=== PATIENT | male | born 1960 | race Caucasian/White ===

== ENCOUNTER 2016-04-25 12:45 | Emergency (ER) | payer MEDICARE, MEDICAID ==
[~2016-04-25 12:45] MED LIST: ATOR40TA PO; BENZ100C PO; CALC-98 PO; OXYC-323 PO
--- NOTE | 2016-04-25 14:28 | PHYS DOC ---
Past Medical History Past Medical History: A-Fib, GERD, High Cholesterol, Hypertension, Other Additional Past Medical Histor: OSTEOPOROSIS, OSTEOGENISIS IMPERFECTA, SCOLIOSIS, heart murmur Past Surgical History: Other Additional Past Surgical Histo: LT FEMUR ORIF ,LEFT SHOULDER ORIF,LEFT ELBOW WIRE,NOSE, BOTH EARS Alcohol Use: None Drug Use: None Adult General Chief Complaint Chief Complaint: RIB PAIN HPI HPI Patient is a 55 year old male who presents with chest pain. Patient reports he has had some broken ribs on the left side recently. 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 He presents now with left lateral chest pain. He also reports feeling a little short of breath, although this may be due to pain with respiration. He has not taken anything for pain at home. No other acute complaints. Of note, patient was admitted last week with chest pain and was evaluated by cardiology, who believes chest pain not cardiac in origin. Review of Systems Review of Systems Constitutional: Denies fever or chills Eyes: Denies change in visual acuity or eye pain HENT: Denies nasal congestion or sore throat Respiratory: Shortness of breath Cardiovascular: L lateral chest pain GI: Denies abdominal pain, nausea, vomiting, bloody stools or diarrhea : Denies dysuria or hematuria Musculoskeletal: Denies back pain or joint pain Integument: Denies rash or skin lesions Neurologic: Denies headache, focal weakness or sensory changes Current Medications Current Medications Current Medications Medications (Trade) Dose Ordered Sig/Chelsie Start Time Stop Time Status Last Admin Dose Admin Aspirin (Children'S Aspirin) 324 mg 1X ONCE 04/25/16 14:30 04/25/16 14:31 DC 04/25/16 15:06 324 MG Fentanyl Citrate (Fentanyl 2ml Vial) 50 mcg 1X ONCE 04/25/16 17:45 04/25/16 17:46 DC 04/25/16 17:45 50 MCG Morphine Sulfate 4 mg 1X ONCE 04/25/16 17:00 04/25/16 17:38 DC Oxycodone/ Acetaminophen (Percocet 5/325) 2 tab 1X ONCE 04/25/16 14:30 04/25/16 14:31 DC 04/25/16 15:06 2 TAB Allergies Allergies Allergies Coded Allergies Type Severity Reaction Last Updated Verified NSAIDS (Non-Steroidal Anti-Inflamma Allergy Intermediate VOMITING UPSET STOMACH 08/13/15 Yes cyclobenzaprine Allergy Intermediate RASH 08/13/15 Yes metaxalone Allergy Intermediate RASH 08/13/15 Yes orphenadrine Allergy Intermediate RASH 08/13/15 Yes tramadol Allergy Intermediate SEIZURE 08/13/15 Yes Physical Exam Physical Exam Constitutional: Well developed, no acute distress, non-toxic appearance, frail HENT: Normocephalic, atraumatic, bilateral external ears normal Eyes: EOMI, conjunctiva normal, no discharge Neck: Normal range of motion, no stridor Cardiovascular: Heart rate normal, regular rhythm, murmur noted Lungs & Thorax: Bilateral breath sounds clear to auscultation; L lateral chest wall markedly TTP without obvious deformity or skin lesion Abdomen: Bowel sounds normal, soft, non-distended, no TTP Skin: Warm, dry, no erythema, no rash Back: Kyphosis Extremities: No obvious deformity, no edema Neurologic: Alert and oriented X 3, no gross deficits noted Current Patient Data Vital Signs Vital Signs Date Time Temp Pulse Resp B/P Pulse Ox O2 Delivery O2 Flow Rate FiO2 04/25/16 17:45 Room Air 04/25/16 16:59 52 13 106/65 96 04/25/16 14:02 98.4 98.4 Lab Values Laboratory Tests Test 04/25/16 14:40 White Blood Count 7.7x10^3/uL (4.0-11.0) Red Blood Count 4.40x10^6/uL (4.30-5.70) Hemoglobin 14.1g/dL (13.0-17.5) Hematocrit 42.4% (39.0-53.0) Mean Corpuscular Volume 96fL (79-100) Mean Corpuscular Hemoglobin 32pg (25-35) Mean Corpuscular Hemoglobin Concent 33g/dL (31-37) Red Cell Distribution Width 13.9% (11.5-14.5) Platelet Count 199x10^3/uL (140-400) Neutrophils (%) (Auto) 69% (31-73) Lymphocytes (%) (Auto) 26% (24-48) Monocytes (%) (Auto) 4% (0-9) Eosinophils (%) (Auto) 0% (0-3) Basophils (%) (Auto) 1% (0-3) Neutrophils # (Auto) 5.3x10^3uL (1.8-7.7) Lymphocytes # (Auto) 2.0x10^3/uL (1.0-4.8) Monocytes # (Auto) 0.3x10^3/uL (0.0-1.1) Eosinophils # (Auto) 0.0x10^3/uL (0.0-0.7) Basophils # (Auto) 0.1x10^3/uL (0.0-0.2) Sodium Level 141mmol/L (136-145) Potassium Level 3.8mmol/L (3.5-5.1) Chloride Level 105mmol/L (98-107) Carbon Dioxide Level 26mmol/L (21-32) Anion Gap 10 (6-14) Blood Urea Nitrogen 13mg/dL (8-26) Creatinine 0.7mg/dL (0.7-1.3) Estimated GFR (Cockcroft-Gault) 116.7 Glucose Level 88mg/dL (70-99) Calcium Level 8.3mg/dL (8.5-10.1) L Troponin I Quantitative < 0.017ng/mL (0.000-0.055) Laboratory Tests 04/25/16 14:40 Laboratory Tests 04/25/16 14:40 EKG EKG EKG (my read): sinus rhythm, rate 62, normal axis, intervals wnl, TWI in aVL/V2- 4 seen on prior EKG (04/11/16) Radiology/Procedures Radiology/Procedures CXR: IMPRESSION: 1. Demineralization. 2. Numerous old left-sided rib fractures. 3. No acute left rib abnormality is detected. Course & Med Decision Making Course & Med Decision Making Pertinent Labs and Imaging studies reviewed. (See chart for details) Patient is 55 year old male who presents with chest pain. Appears to be chest wall pain; was seen by cardiology earlier this month during admission who believed pain not cardiac related. Regardless, will check EKG, labs (including troponin), CXR and rib x-rays. Oral pain meds and ASA ordered. EKG similar to prior. Imaging results as above. Labs unremarkable; troponin wnl. Discussed results with patient. Although patient may be drug seeking (I suspect there is at least a component of this), he does have legitimate pathology related to osteogenesis imperfecta so will send home with small rx for percocet. I instructed the patient on the importance of following up with PCP for further pain management (he does have appt at pain clinic in July). Discharged home with return precautions. Kaiden Disclaimer Kaiden Disclaimer This electronic medical record was generated, in whole or in part, using a voice recognition dictation system. Departure Departure Impression: Primary Impression: Chest wall pain Disposition: HOME, SELF-CARE Condition: STABLE Referrals: NO PCP (PCP) Patient Instructions: Chest Wall Pain Additional Instructions: Thank you for allowing us to provide care today in the Emergency Department. Take the provided medication as directed. Use caution when taking this medication as it can make you drowsy. Schedule a follow up appointment with your primary care doctor as soon as possible. Return promptly to the Emergency Department if you develop any new or concerning symptoms. Scripts Oxycodone/Apap 5-325 (Percocet 5-325 Mg Tablet)1 Each Tablet1 Tab PO PRN Q6HRS PRN PAIN #6 TAB Ref 0 Prov:SUZANNA DESIR MD 04/25/16 SUZANNA DESIR MD Apr 25, 2016 14:28
[2016-04-25] MEDS ORDERED: ASPIRIN 81 MG TAB.CHEW PO ONE (14:30)
[2016-04-25] MEDS ORDERED: OXYCODONE/APAP 5/325 TABLET. PO ONE (14:30)
[2016-04-25 14:49] LABS: BASO # 0.1 x10^3/uL (0.0-0.2); BASO % 1 % (0-3); EOS % 0 % (0-3); HEMATOCRIT 42.4 % (39.0-53.0); HEMOGLOBIN 14.1 g/dL (13.0-17.5); LYMPH % 26 % (24-48); MEAN CORPUSCULAR HEMOGLOBIN 32 pg (25-35); MEAN CORPUSCULAR HGB CONC 33 g/dL (31-37); MEAN CORPUSCULAR VOLUME 96 fL (79-100); MONO % 4 % (0-9); NEUT % 69 % (31-73); PLATELET COUNT 199 x10^3/uL (140-400); RED CELL DISTRIBUTION WIDTH 13.9 % (11.5-14.5); WHITE BLOOD COUNT 7.7 x10^3/uL (4.0-11.0)
[2016-04-25 15:00] LABS: CALCIUM 8.3 mg/dL (8.5-10.1); CREATININE 0.7 mg/dL (0.7-1.3); GFR 116.7; POTASSIUM 3.8 mmol/L (3.5-5.1)
[2016-04-25 16:59] VITALS: BP 106/65
[2016-04-25] MEDS ORDERED: MORPHINE SULFATE 4 MG/ML DISP.SYRIN. IV ONE (17:00)
--- NOTE | 2016-04-25 17:16 | RAD ---
Left RIBS with chest, 3 views, 04/25/2016: History: Rib pain Comparison is made to a study from 04/11/2016. The bony structures are demineralized. There are numerous left-sided rib deformities compatible with old healed fractures. These involve at least the left third through seventh ribs. No definite acute fracture is seen. There is no evidence of underlying pneumothorax or pleural fluid. There is a mild thoracic scoliosis with no vertebral compression deformities. IMPRESSION: 1. Demineralization. 2. Numerous old left-sided rib fractures. 3. No acute left rib abnormality is detected.
[2016-04-25] MEDS ORDERED: FENTANYL PF 100 MCG/2 ML VIAL. IV ONE (17:45)
[2016-04-25] MEDS ORDERED: OXYC-323 PO (18:01)
--- NOTE | 2016-04-26 06:17 | EKG ---
[facility] [address] [place] [address] Test Date: 2016-04-25 Test Time: 14:32:06 Pat Name: SANDRA NG Department: Room: Gender: M Outpatient Dietitian: : 1960 Requested By: SUZANNA DESIR Order Number: [id number] Reading MD: Perla Brooke Measurements Intervals [place] Rate: 62 P: 41 [place]: 156 QRS: 54 QRSD: 88 T: 95 QT: 412 QTc: 420 Interpretive Statements SINUS RHYTHM ST & T ABNORMALITY, CONSIDER ANTERIOR ISCHEMIA T ABNORMALITY IN LATERAL LEADS ABNORMAL ECG Electronically Signed On 04-28-2016 0:08:13 PRESS PIPE INSPECTOR by Perla Brooke
== END 2016-04-25 18:05 | disposition home or self-care (01) ==
LOC: ER 12:45
DX: R07.81 Pleurodynia (principal); E78.00 Pure hypercholesterolemia, unspecified; I10 Essential (primary) hypertension; I48.91 Unspecified atrial fibrillation; K21.9 Gastro-esophageal reflux disease without esophagitis; M41.9 Scoliosis, unspecified; M81.0 Age-related osteoporosis without current pathological fracture; Z88.5 Allergy status to narcotic agent; Z88.8 Allergy status to other drugs, medicaments and biological substances
CPT/HCPCS: 36415; 71101; 80048; 84484; 85027; 93005; 96374; 99285; J3010

== ENCOUNTER 2016-05-03 11:12 | Emergency (ER) | payer MEDICARE, MEDICAID ==
[~2016-05-03] VITALS: Ht 149.9 cm; Wt 54.4 kg
--- NOTE | 2016-05-03 12:42 | PHYS DOC ---
Past Medical History Past Medical History: A-Fib, GERD, High Cholesterol, Hypertension, Other Additional Past Medical Histor: OSTEOPOROSIS, OSTEOGENISIS IMPERFECTA, SCOLIOSIS, heart murmur Past Surgical History: Other Additional Past Surgical Histo: LT FEMUR ORIF ,LEFT SHOULDER ORIF,LEFT ELBOW WIRE,NOSE, BOTH EARS Alcohol Use: None Drug Use: None Adult General Chief Complaint Chief Complaint: BACK PAIN OR INJURY HPI HPI Patient is a 55 year old male who presents to the ED by EMS with the complaint of back and chest pain. The patient has been dealing with these pains for several weeks. He has a history of osteogenesis imperfecta. He states he had 2 rib fractures several weeks ago. Today, he was on the bus, and he did not have a specific injury but he felt his chest "pop like chewing gum" and felt that the pain in his ribs flared up. He also had pain at the middle of his back at this time. Of note, the patient was recently hospitalized for chest and back pain and had a cardiac workup, it was not felt to be cardiac in nature. The chart mentions possible acid peptic/GERD but the patient states he was not told anything about that and was not advised to be on any medication for stomach acid. Patient does not currently have a PCP but states he has an appointment to see a new pediatric intensive physician at a week from Sunday. He does not see a pain management doctor. Review of Systems Review of Systems Constitutional: Denies fever or chills [] Eyes: Denies change in visual acuity, redness, or eye pain [] HENT: Denies nasal congestion or sore throat [] Respiratory: Denies cough or shortness of breath [] Cardiovascular: As in history of present illness. GI: Denies abdominal pain, nausea, vomiting, bloody stools or diarrhea [] : Denies dysuria or hematuria [] Musculoskeletal: As in history of present illness Integument: Denies rash or skin lesions [] Neurologic: Denies headache, focal weakness or sensory changes [] Endocrine: Denies polyuria or polydipsia [] Allergies Allergies Allergies Coded Allergies Type Severity Reaction Last Updated Verified cyclobenzaprine Allergy Intermediate RASH 05/03/16 Yes metaxalone Allergy Intermediate RASH 05/03/16 Yes orphenadrine Allergy Intermediate RASH 05/03/16 Yes tramadol Allergy Intermediate SEIZURE 05/03/16 Yes NSAIDS (Non-Steroidal Anti-Inflamma Adverse Reaction Intermediate VOMITING UPSET STOMACH 05/03/16 Yes Physical Exam Physical Exam Constitutional: Alert, watching TV, in no acute distress whatsoever. Sinus rhythm on the monitor with heart rate in the 60s. Pulse ox 99% on room air. HENT: Normocephalic, atraumatic, bilateral external ears normal, nose normal. [ ] Eyes: conjunctiva normal, no discharge. [] Neck: Normal range of motion, no stridor. [] Cardiovascular:Heart rate regular rhythm, no murmur [] Lungs & Thorax: Bilateral breath sounds clear to auscultation , chest wall nontender to palpation while I am visiting with the patient, no crepitance, no acute deformity Abdomen: Bowel sounds normal, soft, no tenderness, no masses, no pulsatile masses. [] Skin: Warm, dry, no erythema, no rash. [] Back: Patient is wearing a Velcro back brace. No acute abnormality on visual inspection or palpation. Extremities: No tenderness, no cyanosis, no clubbing, ROM intact, no edema. [] Neurologic: Alert and oriented X 3, normal motor function, normal sensory function, no focal deficits noted. [] Current Patient Data Vital Signs Vital Signs Date Time Temp Pulse Resp B/P Pulse Ox O2 Delivery O2 Flow Rate FiO2 05/03/16 11:27 98.1 79 20 116/74 98 Room Air 98.1 EKG EKG 12-lead EKG read by me. Compared to previous EKGs in the record dated April 25 and April 11 2016. Sinus rhythm. Heart rate 82. There are T-wave inversions and ST changes that are present on old EKGs. There are no acute changes on today 's EKG. No STEMI. 1125 [] Radiology/Procedures Radiology/Procedures [] Course & Med Decision Making Course & Med Decision Making Pertinent Labs and Imaging studies reviewed. (See chart for details) 55-year-old male with a history of osteogenesis imperfecta presents with pain related to rib fractures which are several weeks old. He has been seen for complaints of pain multiple times in the ED. Today he is requesting some pain pills and or a pain shot. I discussed with the patient that opiates would not be appropriate for management of the pain that he is dealing with today. I advised him to use ice, use his lower back Velcro brace as needed for his comfort, and definitely follow up with primary care physician as he has planned in 9 days. I reviewed his record and it looks like it would be reasonable for him to try a proton pump inhibitor for possible GERD and I wrote him a prescription for that. [] Jose Franciscoon Disclaimer Dragon Disclaimer This electronic medical record was generated, in whole or in part, using a voice recognition dictation system. Departure Departure Impression: Primary Impression: Chest wall pain Additional Impression: Drug-seeking behavior Disposition: HOME, SELF-CARE Condition: STABLE Referrals: NO PCP (PCP) Additional Instructions: As we discussed, opiate pain medication is usually reserved for a short course after an injury that just happened. For this reason, I would not recommend opiates for your pain today. Your pain might be improved by ice and limiting movement. If you continue to have problems with pain, discussed this with your primary care doctor. As we discussed, when you're recently in the hospital for chest and back pain, they thought that stomach acid might be contributing to this. Let's try a medicine to reduce stomach acid for a week or 2 and see if that helps any. I wrote you for a one-month supply. If it is helping, asked your primary care doctor to renew that prescription. Scripts Esomeprazole Magnesium (Nexium Capsule)40 Mg Capsule.dr40 Mg PO DAILYAC #30 CAP Ref 0 For stomach acid, chest and upper back pain Prov:JONATHAN MEDELLIN MD 05/03/16 Problem Qualifiers JONATHAN MEDELLIN MD May 03, 2016 12:42
[2016-05-03 12:50] VITALS: BP 132/64
[2016-05-03] MEDS ORDERED: ESOM40CA PO (12:50)
--- NOTE | 2016-05-03 13:35 | EKG ---
[facility] [address] [place] [address] Test Date: 2016-05-03 Test Time: 11:25:53 Pat Name: SANDRA NG Department: Room: Gender: M Culinary Artist: : 1960 Requested By: JONATHAN MEDELLIN Order Number: [id number] Reading MD: Raman Hooper Measurements Intervals [place] Rate: 82 P: 133 [place]: 148 QRS: 124 QRSD: 80 T: 74 QT: 384 QTc: 452 Interpretive Statements SINUS RHYTHM ATRIAL PREMATURE COMPLEX(ES) ABNORMAL RIGHT AXIS DEVIATION LEFT POSTERIOR FASCICULAR BLOCK ST & T ABNORMALITY, CONSIDER ANTEROLATERAL ISCHEMIA OR LEFT VENTRICULAR STRAIN T ABNORMALITY IN ANTERIOR LEADS ABNORMAL ECG Electronically Signed On 05-03-2016 15:16:[address] by Raman Hooper
== END 2016-05-03 13:00 | disposition home or self-care (01) ==
LOC: ER 11:12
DX: R07.89 Other chest pain (principal); I48.91 Unspecified atrial fibrillation; I10 Essential (primary) hypertension; K21.9 Gastro-esophageal reflux disease without esophagitis; E78.00 Pure hypercholesterolemia, unspecified; Z72.89 Other problems related to lifestyle; Z88.6 Allergy status to analgesic agent; Z88.8 Allergy status to other drugs, medicaments and biological substances
CPT/HCPCS: 93005; 99283-25

== ENCOUNTER 2016-05-18 06:43 | Emergency (ER) | payer MEDICARE, MEDICAID ==
[~2016-05-18] VITALS: Ht 149.9 cm; Wt 56.7 kg
[~2016-05-18 06:43] MED LIST changes: +ESOM40CA PO
[2016-05-18] MEDS ORDERED: OXYCODONE/APAP 5/325 TABLET. PO ONE (07:15)
--- NOTE | 2016-05-18 07:19 | RAD ---
Portable AP upright view CXR: Clinical indications: Chest pain started this a.m.. Comparison: April 25, 2016. Findings: No acute lung infiltrate or pleural effusion or pulmonary edema or lung mass or pneumothorax is seen. The heart size, pulmonary vasculature, mediastinum and both bigg are unremarkable. Old healed bilateral rib cage fractures are seen. Old left clavicular fracture is seen. Impression: No acute radiographic abnormality is seen.
[2016-05-18 07:43] VITALS: BP 125/70
[2016-05-18 07:47] LABS: BASO % 1 % (0-3); EOS % 0 % (0-3); HEMATOCRIT 38.4 % (39.0-53.0); HEMOGLOBIN 12.6 g/dL (13.0-17.5); LYMPH # 1.6 x10^3/uL (1.0-4.8); LYMPH % 33 % (24-48); MEAN CORPUSCULAR HEMOGLOBIN 32 pg (25-35); MEAN CORPUSCULAR HGB CONC 33 g/dL (31-37); MEAN CORPUSCULAR VOLUME 97 fL (79-100); MONO % 7 % (0-9); NEUT % 60 % (31-73); PLATELET COUNT 267 x10^3/uL (140-400); RED BLOOD COUNT 3.97 x10^6/uL (4.30-5.70); RED CELL DISTRIBUTION WIDTH 13.6 % (11.5-14.5); WHITE BLOOD COUNT 4.8 x10^3/uL (4.0-11.0)
[2016-05-18 07:53] LABS: CALCIUM 9.1 mg/dL (8.5-10.1); CREATININE 0.8 mg/dL (0.7-1.3); POTASSIUM 3.1 mmol/L (3.5-5.1)
[2016-05-18 07:55] LABS: PROTHROMBIN TIME PATIENT 12.9 SEC (11.7-14.0)
[2016-05-18] MEDS ORDERED: OXYC-323 PO (07:58)
[2016-05-18 07:59] LABS: ALBUMIN 3.5 g/dL (3.4-5.0); ALBUMIN/GLOBULIN RATIO 0.9 (1.0-1.7); TOTAL BILIRUBIN 0.5 mg/dL (0.2-1.0); TOTAL PROTEIN 7.5 g/dL (6.4-8.2)
--- NOTE | 2016-05-18 07:59 | PHYS DOC ---
Past Medical History Past Medical History: A-Fib, GERD, High Cholesterol, Hypertension, Other Additional Past Medical Histor: OSTEOPOROSIS, OSTEOGENISIS IMPERFECTA, SCOLIOSIS, heart murmur Past Surgical History: Other Additional Past Surgical Histo: LT FEMUR ORIF ,LEFT SHOULDER ORIF,LEFT ELBOW WIRE,NOSE, BOTH EARS Alcohol Use: None Drug Use: None Adult General Chief Complaint Chief Complaint: CHEST PAIN HPI HPI 55-year-old male who is well-known to our emergency Department presents with left-sided chest pain after he fell getting off the bus on [place] way to the [place] this morning. He states he landed on his left side. He does state that after the fall he developed some left shoulder and arm pain as well. He has had surgery on his left shoulder so he has chronic pain in that area. During the course of the interview the patient asked multiple times if he could have Percocet rather than anything through the IV because it lasted longer. He denies any shortness of breath nausea or diaphoresis. He denies any exertional dyspnea. He states he would like to get out of here as soon as possible so he can get over to the [place]. [] Review of Systems Review of Systems Constitutional: Denies fever or chills [] Eyes: Denies change in visual acuity, redness, or eye pain [] HENT: Denies nasal congestion or sore throat [] Respiratory: Denies cough or shortness of breath [] Cardiovascular: No additional information not addressed in HPI [] GI: Denies abdominal pain, nausea, vomiting, bloody stools or diarrhea [] : Denies dysuria or hematuria [] Musculoskeletal: Per history of present illness [] Integument: Denies rash or skin lesions [] Neurologic: Denies headache, focal weakness or sensory changes [] Endocrine: Denies polyuria or polydipsia [] Current Medications Current Medications Current Medications Medications (Trade) Dose Ordered Sig/Chelsie Start Time Stop Time Status Last Admin Dose Admin Oxycodone/ Acetaminophen (Percocet 5/325) 2 tab 1X ONCE 05/18/16 07:15 05/18/16 07:16 DC 05/18/16 07:19 2 TAB Allergies Allergies Allergies Coded Allergies Type Severity Reaction Last Updated Verified cyclobenzaprine Allergy Intermediate RASH 05/03/16 Yes metaxalone Allergy Intermediate RASH 05/03/16 Yes orphenadrine Allergy Intermediate RASH 05/03/16 Yes tramadol Allergy Intermediate SEIZURE 05/03/16 Yes NSAIDS (Non-Steroidal Anti-Inflamma Adverse Reaction Intermediate VOMITING UPSET STOMACH 05/03/16 Yes Physical Exam Physical Exam Constitutional: Well developed, well nourished, no acute distress, non-toxic appearance. [] HENT: Normocephalic, atraumatic, bilateral external ears normal, oropharynx moist, no oral exudates, nose normal. [] Eyes: PERRLA, EOMI, conjunctiva normal, no discharge. [] Neck: Normal range of motion, no tenderness, supple, no stridor. [] Cardiovascular:Heart rate regular rhythm, no murmur [] Lungs & Thorax: Bilateral breath sounds clear to auscultation [] Abdomen: Bowel sounds normal, soft, no tenderness, no masses, no pulsatile masses. [] Skin: Warm, dry, no erythema, no rash. [] Back: No tenderness, no CVA tenderness. [] Extremities: No tenderness, no cyanosis, no clubbing, ROM intact, no edema. [] Neurologic: Alert and oriented X 3, normal motor function, normal sensory function, no focal deficits noted. [] Psychologic: Affect normal, judgement normal, mood normal. [] Current Patient Data Vital Signs Vital Signs Date Time Temp Pulse Resp B/P Pulse Ox O2 Delivery O2 Flow Rate FiO2 05/18/16 07:43 62 18 125/70 96 Room Air 05/18/16 06:47 98.0 98.0 Lab Values Laboratory Tests Test 05/18/16 07:30 White Blood Count 4.8x10^3/uL (4.0-11.0) Red Blood Count 3.97x10^6/uL (4.30-5.70) L Hemoglobin 12.6g/dL (13.0-17.5) L Hematocrit 38.4% (39.0-53.0) L Mean Corpuscular Volume 97fL (79-100) Mean Corpuscular Hemoglobin 32pg (25-35) Mean Corpuscular Hemoglobin Concent 33g/dL (31-37) Red Cell Distribution Width 13.6% (11.5-14.5) Platelet Count 267x10^3/uL (140-400) Neutrophils (%) (Auto) 60% (31-73) Lymphocytes (%) (Auto) 33% (24-48) Monocytes (%) (Auto) 7% (0-9) Eosinophils (%) (Auto) 0% (0-3) Basophils (%) (Auto) 1% (0-3) Neutrophils # (Auto) 2.8x10^3uL (1.8-7.7) Lymphocytes # (Auto) 1.6x10^3/uL (1.0-4.8) Monocytes # (Auto) 0.3x10^3/uL (0.0-1.1) Eosinophils # (Auto) 0.0x10^3/uL (0.0-0.7) Basophils # (Auto) 0.0x10^3/uL (0.0-0.2) Prothrombin Time 12.9SEC (11.7-14.0) Prothrombin Time INR 1.0 (0.8-1.1) Sodium Level 140mmol/L (136-145) Potassium Level 3.1mmol/L (3.5-5.1) L Chloride Level 102mmol/L (98-107) Carbon Dioxide Level 27mmol/L (21-32) Anion Gap 11 (6-14) Blood Urea Nitrogen 17mg/dL (8-26) Creatinine 0.8mg/dL (0.7-1.3) Estimated GFR (Cockcroft-Gault) 100.0 BUN/Creatinine Ratio 21 (6-20) H Glucose Level 103mg/dL (70-99) H Calcium Level 9.1mg/dL (8.5-10.1) Total Bilirubin 0.5mg/dL (0.2-1.0) Aspartate Amino Transferase (AST) 15U/L (15-37) Alanine Aminotransferase (ALT) 18U/L (16-63) Alkaline Phosphatase 82U/L (46-116) Troponin I Quantitative < 0.017ng/mL (0.000-0.055) WY-Lvj-C-Type Natriuretic Peptide 179pg/mL (0-124) H Total Protein 7.5g/dL (6.4-8.2) Albumin 3.5g/dL (3.4-5.0) Albumin/Globulin Ratio 0.9 (1.0-1.7) L Ethyl Alcohol Level < 10mg/dL (0-10) Laboratory Tests 2/9/17 07:30 Laboratory Tests 05/18/16 07:30 EKG EKG EKG: Normal sinus rhythm with flipped T waves anterior laterally which is unchanged from previous EKG rate of 60 [] Radiology/Procedures Radiology/Procedures [] Impressions: PROCEDURE: CHEST AP ONLY Portable AP upright view CXR: Clinical indications: Chest pain started this a.m.. Comparison: April 25, 2016. Findings: No acute lung infiltrate or pleural effusion or pulmonary edema or lung mass or pneumothorax is seen. The heart size, pulmonary vasculature, mediastinum and both bigg are unremarkable. Old healed bilateral rib cage fractures are seen. Old left clavicular fracture is seen. Impression: No acute radiographic abnormality is seen. Course & Med Decision Making Course & Med Decision Making Pertinent Labs and Imaging studies reviewed. (See chart for details) [] Dragon Disclaimer Dragon Disclaimer This electronic medical record was generated, in whole or in part, using a voice recognition dictation system. Departure Departure Impression: Primary Impression: Chest wall contusion Disposition: HOME, SELF-CARE Condition: STABLE Referrals: NO PCP (PCP) Patient Instructions: Chest Wall Pain Additional Instructions: Thank you for allowing us to participate in your care today. Followup with your primary care physician in 3 days if your symptoms do not improve. Return to the emergency department you have any new or concerning findings. This should be evaluated by the primary care physician and any necessary consulting services for continued management within a few days after discharge. Return to emergency room if you have any new or concerning symptoms including but not limited to fever, chills, nausea, vomiting, intractable pain, any new rashes, chest pain, shortness of air, uncontrolled bleeding, difficulty breathing, and/or vision loss. You may have been prescribed medication that can change in your level of thinking and ability to operate machinery. These medications include hydrocodone and Ativan. Also, Benadryl has been known to do this as well. Be sure to check with your pharmacist and ask if the medications you've prescribed can affect your level of consciousness. I recommend not operating heavy machinery or driving while on medication such as these. Scripts Oxycodone/Apap 5-325 (Percocet 5-325 Mg Tablet)1 Each Tablet1 Tab PO PRN Q6HRS PRN PAIN #10 TAB Prov:MAGGIE HARRELL DO 05/18/16 Problem Qualifiers Primary Impression: Chest wall contusion Encounter type: initial encounter Laterality: left Qualified Code: S20.212A - Contusion of left front wall of thorax, initial encounter MAGGIE HARRELL DO May 18, 2016 07:59
--- NOTE | 2016-05-18 13:55 | EKG ---
[facility] [address] [place] [address] Test Date: 2016-05-18 Test Time: 11:51:33 Pat Name: SANDRA NG Department: Room: Gender: M Placement Assistant: : 1960 Requested By: MAGGIE HARRELL Order Number: [id number] Reading MD: Perla Brooke Measurements Intervals [place] Rate: P: [place]: QRS: QRSD: T: QT: QTc: Interpretive Statements SINUS RHYTHM LEFT VENTRICULAR HYPERTROPHY WITH REPOLARIZATION CHANGES. ALSO CONSIDER MYOCARDIAL ISCHEMIA Electronically Signed On 05-21-2016 15:51:45 PAPER FEEDER by Perla Brooke
== END 2016-05-18 09:23 | disposition home or self-care (01) ==
LOC: ER 06:43
DX: S20.219A Contusion of unspecified front wall of thorax, initial encounter (principal); I10 Essential (primary) hypertension; E78.00 Pure hypercholesterolemia, unspecified; G89.29 Other chronic pain; I48.91 Unspecified atrial fibrillation; K21.9 Gastro-esophageal reflux disease without esophagitis; M41.9 Scoliosis, unspecified; Z88.6 Allergy status to analgesic agent; Z88.8 Allergy status to other drugs, medicaments and biological substances; W17.89XA Other fall from one level to another, initial encounter; Y93.89 Activity, other specified; Y99.8 Other external cause status; Y92.89 Other specified places as the place of occurrence of the external cause
CPT/HCPCS: 36415; 71010; 80053; 83880; 84484; 85027; 85610; 93005; 99285; G0480

== ENCOUNTER 2016-05-29 08:15 | Emergency (ER) | payer MEDICARE, MEDICAID ==
[~2016-05-29] VITALS: Ht 149.9 cm; Wt 56.7 kg
[2016-05-29 08:49] LABS: BASO % 1 % (0-3); EOS % 0 % (0-3); HEMATOCRIT 32.9 % (39.0-53.0); HEMOGLOBIN 10.9 g/dL (13.0-17.5); LYMPH # 1.2 x10^3/uL (1.0-4.8); LYMPH % 17 % (24-48); MEAN CORPUSCULAR HEMOGLOBIN 32 pg (25-35); MEAN CORPUSCULAR HGB CONC 33 g/dL (31-37); MEAN CORPUSCULAR VOLUME 97 fL (79-100); MONO % 8 % (0-9); NEUT % 75 % (31-73); PLATELET COUNT 189 x10^3/uL (140-400); RED CELL DISTRIBUTION WIDTH 14.2 % (11.5-14.5)
[2016-05-29 08:55] LABS: CREATININE 0.9 mg/dL (0.7-1.3); GFR 87.3; POTASSIUM 3.7 mmol/L (3.5-5.1)
[2016-05-29] MEDS ORDERED: FENTANYL PF 100 MCG/2 ML VIAL. IV ONE (09:00)
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
--- NOTE | 2016-05-29 09:15 | RAD ---
Right tibia and fibula, 2 views, 05/29/2016: History: Fall, pain and bruising No fracture is identified. There is moderate subcutaneous edema. IMPRESSION: No acute bony abnormality is detected.
--- NOTE | 2016-05-29 09:17 | RAD ---
Portable chest, 05/29/2016: History: Chest pain Comparison is made to a study from 05/18/2016. The heart size and pulmonary vascularity are normal. No pulmonary infiltrates are seen. There is no evidence of pleural fluid or pneumothorax. Numerous old healed rib fractures are again noted bilaterally. There is an old healed left clavicular fracture. A surgical screw is present in the proximal left humerus. There is a mild thoracic scoliosis. IMPRESSION: No acute cardiopulmonary abnormality is detected.
--- NOTE | 2016-05-29 09:24 | EKG ---
[facility] [address] [place] [address] Test Date: 2016-05-29 Test Time: 08:16:32 Pat Name: SANDRA NG Department: Room: Gender: Elderly Caregiver: LYNNE ER : 1960 Requested By: Marshall ROMANO Order Number: [id number] Reading MD: Measurements Intervals [place] Rate: 87 P: 40 MI: 150 QRS: 64 QRSD: 76 T: 101 QT: 354 QTc: 432 Interpretive Statements SINUS RHYTHM ATRIAL PREMATURE COMPLEX(ES) ST & T ABNORMALITY, CONSIDER ANTERIOR ISCHEMIA OR LEFT VENTRICULAR STRAIN ABNORMAL ECG RI6.01 No previous ECG available for comparison
[2016-05-29 09:45] VITALS: BP 102/54
== END 2016-05-29 10:11 | disposition home or self-care (01) ==
LOC: ER 08:15
DX: R07.89 Other chest pain (principal); S80.11XA Contusion of right lower leg, initial encounter; E78.00 Pure hypercholesterolemia, unspecified; I10 Essential (primary) hypertension; M81.0 Age-related osteoporosis without current pathological fracture; M41.9 Scoliosis, unspecified; Z88.6 Allergy status to analgesic agent; Z88.8 Allergy status to other drugs, medicaments and biological substances; W17.89XA Other fall from one level to another, initial encounter; Y93.89 Activity, other specified; Y92.89 Other specified places as the place of occurrence of the external cause; Y99.8 Other external cause status
CPT/HCPCS: 36415; 71010; 73590; 80048; 83880; 84484; 85027; 93005; 96374; 99285; J3010

== ENCOUNTER 2016-07-02 12:04 | Emergency (ER) | payer MEDICARE, MEDICAID ==
[~2016-07-02] VITALS: Ht 149.9 cm; Wt 56.7 kg
[2016-07-02] MEDS ORDERED: ASPIRIN 81 MG TAB.CHEW PO ONE (12:45)
[2016-07-02] MEDS ORDERED: HYDROCODONE/APAP 5/325MG TABLET. PO ONE (12:45)
--- NOTE | 2016-07-02 12:48 | PHYS DOC ---
Past Medical History Past Medical History: A-Fib, GERD, High Cholesterol, Hypertension, Other Additional Past Medical Histor: osteoporosis, osteogenesis imperfecta, scoliosis, heart murmer Past Surgical History: Other Additional Past Surgical Histo: lt femur orif, lt shoulder orif, left elbow wire, nasal, bilat ear Alcohol Use: None Drug Use: None Adult General Chief Complaint Chief Complaint: CHEST PAIN HPI HPI 55-year-old male presenting to the emergency department with chest pain. His pain is left in the left rib pain is reproducible upon palpation. It does radiate up to his left jaw. She reports it started approximately 1 hour prior to arrival. He was given aspirin and nitroglycerin prior to arrival which did not improve his pain. Pain is moderate. Patient was seen by our cardiology team last time he was admitted in April of this year where cardiology had seen him. He had a negative stress test. Cardiology signed off at that time. He reports his pain is similar to the previous episodes he's had. Review of systems is negative for abdominal pain nausea vomiting diaphoresis. All other review of systems is negative unless otherwise noted in history of present illness. Review of Systems Review of Systems SEE ABOVE. Current Medications Current Medications Current Medications Medications (Trade) Dose Ordered Sig/Chelsie Start Time Stop Time Status Last Admin Dose Admin Acetaminophen/ Hydrocodone Bitart (Lortab 5/325) 1 tab 1X ONCE 07/02/16 12:45 07/02/16 12:50 DC 07/02/16 13:31 1 TAB Aspirin (Children'S Aspirin) 324 mg 1X ONCE 07/02/16 12:45 07/02/16 12:46 DC Allergies Allergies Allergies Coded Allergies Type Severity Reaction Last Updated Verified cyclobenzaprine Allergy Intermediate RASH 05/03/16 Yes metaxalone Allergy Intermediate RASH 05/03/16 Yes orphenadrine Allergy Intermediate RASH 05/03/16 Yes tramadol Allergy Intermediate SEIZURE 05/03/16 Yes NSAIDS (Non-Steroidal Anti-Inflamma Adverse Reaction Intermediate VOMITING UPSET STOMACH 05/03/16 Yes Physical Exam Physical Exam Constitutional: Well developed, well nourished, no acute distress, non-toxic appearance. HENT: Normocephalic, atraumatic, bilateral external ears normal, oropharynx moist, no oral exudates, nose normal. [] Eyes: PERRLA, EOMI, conjunctiva normal, no discharge. Neck: Normal range of motion, no tenderness, supple, no stridor. Cardiovascular:Heart rate regular rhythm, no murmur [] Lungs & Thorax: Bilateral breath sounds clear to auscultation . Chest is tender to palpation. Abdomen: Bowel sounds normal, soft, no tenderness, no masses, no pulsatile masses. [] Skin: Warm, dry, no erythema, no rash. Back: No tenderness, no CVA tenderness. [] Extremities: No tenderness, no cyanosis, no clubbing, ROM intact, no edema. Neurologic: Alert and oriented X 3, normal motor function, normal sensory function, no focal deficits noted. Psychologic: Affect normal, judgement normal, mood normal. [] Current Patient Data Vital Signs Vital Signs Date Time Temp Pulse Resp B/P Pulse Ox O2 Delivery O2 Flow Rate FiO2 07/02/16 14:11 60 16 114/65 98 07/02/16 12:10 98.1 Room Air 98.1 Lab Values Laboratory Tests Test 07/02/16 12:09 07/02/16 14:13 White Blood Count 7.5x10^3/uL (4.0-11.0) Red Blood Count 4.32x10^6/uL (4.30-5.70) Hemoglobin 13.2g/dL (13.0-17.5) Hematocrit 40.7% (39.0-53.0) Mean Corpuscular Volume 94fL (79-100) Mean Corpuscular Hemoglobin 31pg (25-35) Mean Corpuscular Hemoglobin Concent 33g/dL (31-37) Red Cell Distribution Width 14.6% (11.5-14.5) H Platelet Count 277x10^3/uL (140-400) Neutrophils (%) (Auto) 67% (31-73) Lymphocytes (%) (Auto) 27% (24-48) Monocytes (%) (Auto) 5% (0-9) Eosinophils (%) (Auto) 0% (0-3) Basophils (%) (Auto) 1% (0-3) Neutrophils # (Auto) 5.0x10^3uL (1.8-7.7) Lymphocytes # (Auto) 2.0x10^3/uL (1.0-4.8) Monocytes # (Auto) 0.4x10^3/uL (0.0-1.1) Eosinophils # (Auto) 0.0x10^3/uL (0.0-0.7) Basophils # (Auto) 0.0x10^3/uL (0.0-0.2) Sodium Level 141mmol/L (136-145) Potassium Level 4.0mmol/L (3.5-5.1) Chloride Level 102mmol/L (98-107) Carbon Dioxide Level 28mmol/L (21-32) Anion Gap 11 (6-14) Blood Urea Nitrogen 15mg/dL (8-26) Creatinine 0.7mg/dL (0.7-1.3) Estimated GFR (Cockcroft-Gault) 116.7 Glucose Level 108mg/dL (70-99) H Calcium Level 9.5mg/dL (8.5-10.1) Troponin I Quantitative < 0.017ng/mL (0.000-0.055) < 0.017ng/mL (0.000-0.055) Laboratory Tests 07/02/16 12:09 Laboratory Tests 07/02/16 12:09 EKG EKG [] EKG compared to previous on 05/29 2016 under the name of Aubrey Siddiqui. Raul is patient's mental name. VK #[id number] and VK #[id number]. EKG similar to previous. Sinus rhythm with regular rate. [place] is leftward. There is some mild repolarization abnormality in lead V2.Similiar to previous. Otherwise unremarkable. Radiology/Procedures Radiology/Procedures [] Course & Med Decision Making Course & Med Decision Making Pertinent Labs and Imaging studies reviewed. (See chart for details) [] 55-year-old male presenting to the emergency department today with chest pain. EKG similar to prior. Afebrile. Normal vital signs. X-ray unremarkable. Blood work obtained shows normal troponin. Patient was provided pain medication in the emergency department. Troponin negative 2. He was then discharged to follow-up with the patient's PCP in 2-3 days. Dragon Disclaimer Dragon Disclaimer This electronic medical record was generated, in whole or in part, using a voice recognition dictation system. Departure Departure Impression: Primary Impression: Chest pain Disposition: HOME, SELF-CARE Condition: STABLE Referrals: NO PCP (PCP) HAYDEN MICHAUD MD Patient Instructions: Chest Pain (Nonspecific) Additional Instructions: Thank you for allowing us to participate in your care today. Followup with your primary care physician in 3 days if your symptoms do not improve. If you do not have a primary care provider you can ask for a list of our primary care providers. Return to the emergency department you have any new or concerning findings. This should be evaluated by the primary care physician and any necessary consulting services for continued management within a few days after discharge. Return to emergency room if you have any new or concerning symptoms including but not limited to fever, chills, nausea, vomiting, intractable pain, any new rashes, chest pain, shortness of air, uncontrolled bleeding, difficulty breathing, and/or vision loss. You may have been prescribed medication that can change in your level of thinking and ability to operate machinery. These medications include hydrocodone and Ativan. Also, Benadryl has been known to do this as well. Be sure to check with your pharmacist and ask if the medications you've prescribed can affect your level of consciousness. I recommend not operating heavy machinery or driving while on medication such as these. Scripts Aspirin 81 Mg Tab.chew1 Tab PO DAILY #14 TAB Ref 3 Prov:JOCY GRIJALVA MD 07/02/16 JOCY GRIJALVA MD Jul 02, 2016 12:48
[2016-07-02 12:49] LABS: BASO % 1 % (0-3); EOS % 0 % (0-3); HEMATOCRIT 40.7 % (39.0-53.0); HEMOGLOBIN 13.2 g/dL (13.0-17.5); LYMPH % 27 % (24-48); MEAN CORPUSCULAR HEMOGLOBIN 31 pg (25-35); MEAN CORPUSCULAR HGB CONC 33 g/dL (31-37); MEAN CORPUSCULAR VOLUME 94 fL (79-100); MONO % 5 % (0-9); NEUT % 67 % (31-73); PLATELET COUNT 277 x10^3/uL (140-400); RED BLOOD COUNT 4.32 x10^6/uL (4.30-5.70); RED CELL DISTRIBUTION WIDTH 14.6 % (11.5-14.5); WHITE BLOOD COUNT 7.5 x10^3/uL (4.0-11.0)
[2016-07-02 13:02] LABS: CALCIUM 9.5 mg/dL (8.5-10.1); CREATININE 0.7 mg/dL (0.7-1.3); GFR 116.7
--- NOTE | 2016-07-02 13:26 | RAD ---
Indication pain in the jaw and ribs. A single view of the chest was obtained. Comparison is made to a study just over one month earlier. Patient is somewhat rotated on the image. The heart and pulmonary vessels are within normal limits. An acute parenchymal infiltrate is not seen. A significant change when compared to the prior study is not seen. Multiple healed rib fractures are noted. IMPRESSION: No acute finding. No significant change
[2016-07-02] MEDS ORDERED: ASPI81TA2 PO (14:03)
[2016-07-02 14:41] VITALS: BP 158/60
--- NOTE | 2016-07-03 06:14 | EKG ---
[facility] [address] [place] [address] Test Date: 2016-07-02 Test Time: 12:11:25 Pat Name: SANDRA NG Department: Room: Gender: M Certified Medication Technician: : 1960 Requested By: JOCY GRIJALVA Order Number: [id number] Reading MD: Perla Brooke Measurements Intervals [place] Rate: 75 P: 47 ID: [id number] QRS: 57 QRSD: 78 T: 85 QT: 376 QTc: 422 Interpretive Statements SINUS RHYTHM LEFT ATRIAL ABNORMALITY ST & T ABNORMALITY, CONSIDER ANTEROLATERAL ISCHEMIA ABNORMAL ECG Electronically Signed On 07-03-2016 19:46:23 CDT by Perla Brooke
== END 2016-07-02 14:51 | disposition home or self-care (01) ==
LOC: ER 12:04
DX: R07.81 Pleurodynia (principal); I48.91 Unspecified atrial fibrillation; K21.9 Gastro-esophageal reflux disease without esophagitis; E78.00 Pure hypercholesterolemia, unspecified; I10 Essential (primary) hypertension; M81.0 Age-related osteoporosis without current pathological fracture; Z88.8 Allergy status to other drugs, medicaments and biological substances; Z88.5 Allergy status to narcotic agent; Z88.6 Allergy status to analgesic agent
CPT/HCPCS: 36415; 71010; 80048; 84484; 85027; 93005; 99285-25

== ENCOUNTER 2016-07-18 12:02 | Emergency (ER) | payer MEDICARE, MEDICAID ==
[~2016-07-18] VITALS: Ht 149.9 cm; Wt 56.7 kg
[~2016-07-18 12:02] MED LIST changes: +ASPI81TA2 PO
--- NOTE | 2016-07-18 12:44 | EKG ---
[facility] [address] [place] [address] Test Date: 2016-07-18 Test Time: 12:23:22 Pat Name: SANDRA NG Department: Room: Gender: M [employer]fg [employer]: : 1960 Requested By: RACH HEATH Order Number: [id number] Reading MD: Measurements Intervals [place] Rate: 67 P: 41 MA: 146 QRS: 45 QRSD: 96 T: 90 QT: 412 QTc: 438 Interpretive Statements SINUS RHYTHM QRS(T) CONTOUR ABNORMALITY CONSIDER ANTEROSEPTAL MYOCARDIAL DAMAGE ST & T ABNORMALITY, CONSIDER ANTERIOR ISCHEMIA OR LEFT VENTRICULAR STRAIN T ABNORMALITY IN HIGH LATERAL LEADS ABNORMAL ECG RI6.01 No previous ECG available for comparison
[2016-07-18] MEDS ORDERED: NITROGLYCERIN SUBLINGUAL 0.4 MG BOTTLE OF 25. SL PRN (12:45)
[2016-07-18] MEDS ORDERED: FENTANYL PF 100 MCG/2 ML VIAL. IV PRN (12:45)
--- NOTE | 2016-07-18 12:51 | RAD ---
PA and lateral chest radiographs 07/18/2016 Clinical history: Chest pain and shortness of breath since earlier today. PA and lateral digital radiographs of the chest were obtained. Comparison study is dated 07/02/2016. The cardiac silhouette is borderline enlarged. The thoracic aorta is mildly tortuous. No acute pulmonary infiltrate is seen. No pleural effusion or pneumothorax is noted. The osseous structures are unchanged. A bone screw seen within the proximal left humerus, unchanged. Impression: No acute abnormality is seen.
[2016-07-18 12:52] LABS: BASO # 0.1 x10^3/uL (0.0-0.2); BASO % 1 % (0-3); EOS % 0 % (0-3); HEMATOCRIT 40.5 % (39.0-53.0); HEMOGLOBIN 13.2 g/dL (13.0-17.5); LYMPH # 2.1 x10^3/uL (1.0-4.8); LYMPH % 30 % (24-48); MEAN CORPUSCULAR HEMOGLOBIN 31 pg (25-35); MEAN CORPUSCULAR HGB CONC 33 g/dL (31-37); MEAN CORPUSCULAR VOLUME 94 fL (79-100); MONO % 4 % (0-9); NEUT % 65 % (31-73); PLATELET COUNT 173 x10^3/uL (140-400); RED BLOOD COUNT 4.29 x10^6/uL (4.30-5.70); RED CELL DISTRIBUTION WIDTH 14.5 % (11.5-14.5); WHITE BLOOD COUNT 6.8 x10^3/uL (4.0-11.0)
[2016-07-18 13:03] LABS: CALCIUM 8.8 mg/dL (8.5-10.1); CREATININE 0.9 mg/dL (0.7-1.3); GFR 87.3; POTASSIUM 3.9 mmol/L (3.5-5.1)
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
[2016-07-18 13:09] LABS: ALBUMIN 3.8 g/dL (3.4-5.0); DIRECT BILIRUBIN 0.1 mg/dL (0.0-0.2); TOTAL BILIRUBIN 0.3 mg/dL (0.2-1.0); TOTAL PROTEIN 7.8 g/dL (6.4-8.2)
[2016-07-18] MEDS ORDERED: OXYCODONE/APAP 5/325 TABLET. PO ONE (13:30)
[2016-07-18 13:56] LABS: BARBITURATES NEG (NEG); BENZODIAZEPINES NEG (NEG); CANNABINOIDS NEG (NEG); COCAINE NEG (NEG); METHADONE NEG (NEG); OPIATES POS (NEG); PHENCYCLIDINE NEG (NEG)
[2016-07-18 13:59] LABS: ETHANOL, URINE NEG (NEG)
[2016-07-18] MEDS ORDERED: OXYC-323 PO (15:13)
[2016-07-18] MEDS ORDERED: OXYCODONE/APAP 10/325 TABLET. PO ONE (15:15)
[2016-07-18 15:20] VITALS: BP 151/72
== END 2016-07-18 15:20 | disposition home or self-care (01) ==
LOC: ER 12:02
DX: R07.81 Pleurodynia (principal); I48.91 Unspecified atrial fibrillation; K21.9 Gastro-esophageal reflux disease without esophagitis; E78.00 Pure hypercholesterolemia, unspecified; I10 Essential (primary) hypertension; M81.0 Age-related osteoporosis without current pathological fracture; F17.210 Nicotine dependence, cigarettes, uncomplicated; Z88.6 Allergy status to analgesic agent; Z88.8 Allergy status to other drugs, medicaments and biological substances
CPT/HCPCS: 36415; 71020; 80048; 80076; 80305; 83690; 83880; 84484; 84703; 85027; 93005; 96374; 99285; J3010; 81025; G0481

== ENCOUNTER 2016-08-02 12:31 | Emergency (ER) | payer MEDICARE, MEDICAID ==
[~2016-08-02] VITALS: Ht 149.9 cm; Wt 56.7 kg
[~2016-08-02 12:31] MED LIST changes: +MELA3TAB PO
[2016-08-02] MEDS ORDERED: IV NORMAL SALINE 1000ML BAG 1,000 ML IV SCH (12:48)
[2016-08-02 12:59] LABS: BASO # 0.1 x10^3/uL (0.0-0.2); BASO % 1 % (0-3); EOS % 1 % (0-3); HEMATOCRIT 39.7 % (39.0-53.0); HEMOGLOBIN 13.1 g/dL (13.0-17.5); LYMPH # 1.6 x10^3/uL (1.0-4.8); LYMPH % 28 % (24-48); MEAN CORPUSCULAR HEMOGLOBIN 31 pg (25-35); MEAN CORPUSCULAR HGB CONC 33 g/dL (31-37); MEAN CORPUSCULAR VOLUME 94 fL (79-100); MONO % 5 % (0-9); NEUT % 66 % (31-73); PLATELET COUNT 210 x10^3/uL (140-400); RED BLOOD COUNT 4.21 x10^6/uL (4.30-5.70); RED CELL DISTRIBUTION WIDTH 14.8 % (11.5-14.5); WHITE BLOOD COUNT 5.7 x10^3/uL (4.0-11.0)
--- NOTE | 2016-08-02 13:13 | PHYS DOC ---
Past Medical History Past Medical History: A-Fib, High Cholesterol, Other Additional Past Medical Histor: osteoporosis, osteogenesis imperfecta, scoliosis, heart murmer Past Surgical History: Other Additional Past Surgical Histo: lt femur orif, lt shoulder orif, left elbow wire, nasal, bilat ear Alcohol Use: None Drug Use: None Adult General Chief Complaint Chief Complaint: CHEST PAIN HPI HPI Patient is a 55 year old male who presents with chest pain and back pain. He states earlier today he fell backwards and injured his back. He states he's having 8 out of 10 sharp pain that's located to his shoulder blades. He also complains about anterior chest pain in the same spot. He states this back pain started immediately after he fell and within about an hour ago his chest pain started. Nothing makes his chest pain that are worse she states that sharp in nature and is nonradiating. He denies any nausea or vomiting he does complain of some shortness of breath associated with this discomfort. States she has a history of compression fractures and has had right-sided rib fractures secondary to his osteogenesis imperfecta. States he had a negative stress test partially 4-5 months ago at and the perform this test because of elevated cardiac enzymes of the time. He states he's never had a heart attack. He does take aspirin daily. He also has history of this lipidemia and he does smoke daily. Review of Systems Review of Systems Constitutional: Denies fever or chills [] Eyes: Denies change in visual acuity, redness, or eye pain [] HENT: Denies nasal congestion or sore throat [] Respiratory: Denies cough or shortness of breath [] Cardiovascular: No additional information not addressed in HPI [] GI: Denies abdominal pain, nausea, vomiting, bloody stools or diarrhea [] : Denies dysuria or hematuria [] Musculoskeletal: Positive for back pain Integument: Denies rash or skin lesions [] Neurologic: Denies headache, focal weakness or sensory changes [] Endocrine: Denies polyuria or polydipsia [] Current Medications Current Medications Current Medications Medications (Trade) Dose Ordered Sig/Chelsie Start Time Stop Time Status Last Admin Dose Admin Fentanyl Citrate (Fentanyl 2ml Vial) 50 mcg PRN Q15MIN PRN 08/02/16 13:15 08/02/16 17:32 DC 08/02/16 15:56 50 MCG Info (Do NOT chart on this entry -- for MONITORING) 1 each PRN DAILY PRN 08/02/16 14:00 08/02/16 17:32 DC Iohexol (Omnipaque 300 Mg/ml) 75 ml 1X ONCE 08/02/16 14:00 08/02/16 14:01 DC 08/02/16 14:05 75 ML Nitroglycerin 0.4 mg 0.4 mg PRN Q5MIN PRN 08/02/16 13:00 08/02/16 17:32 DC 08/02/16 15:53 0.4 MG Oxycodone/ Acetaminophen (Percocet 5/325) 2 tab 1X ONCE 08/02/16 17:15 08/02/16 17:16 DC 08/02/16 17:22 2 TAB Sodium Chloride (Iv Sodium Chloride 0.9% 1000ml Bag) 1,000 ml @ 1,000 mls/hr Q1H 08/02/16 12:48 08/02/16 13:47 DC 08/02/16 12:56 1,000 MLS/HR Allergies Allergies Allergies Coded Allergies Type Severity Reaction Last Updated Verified cyclobenzaprine Allergy Intermediate RASH 05/03/16 Yes metaxalone Allergy Intermediate RASH 05/03/16 Yes orphenadrine Allergy Intermediate RASH 05/03/16 Yes tramadol Allergy Intermediate SEIZURE 07/18/16 Yes NSAIDS (Non-Steroidal Anti-Inflamma Adverse Reaction Intermediate VOMITING UPSET STOMACH 05/03/16 Yes Physical Exam Physical Exam Constitutional: Well developed, well nourished, no acute distress, non-toxic appearance. [] HENT: Normocephalic, atraumatic, bilateral external ears normal, oropharynx moist, no oral exudates, nose normal. [] Eyes: PERRLA, EOMI, conjunctiva normal, no discharge. [] Neck: Normal range of motion, no tenderness, supple, no stridor. [] Cardiovascular:Heart rate regular rhythm, no murmur [] Lungs & Thorax: Bilateral breath sounds clear to auscultation [] Abdomen: Bowel sounds normal, soft, no tenderness, no masses, no pulsatile masses. [] Skin: Warm, dry, no erythema, no rash. [] Back: No step-offs noted, tender palpation around T3 to 4 area midline, no CVA tenderness. [] Extremities: No tenderness, no cyanosis, no clubbing, ROM intact, no edema. [] Neurologic: Alert and oriented X 3, normal motor function, normal sensory function, no focal deficits noted. [] Psychologic: Affect normal, judgement normal, mood normal. [] Current Patient Data Vital Signs Vital Signs Date Time Temp Pulse Resp B/P Pulse Ox O2 Delivery O2 Flow Rate FiO2 08/02/16 17:25 52 16 117/67 96 08/02/16 17:22 Room Air 08/02/16 12:35 97.7 97.7 Lab Values Laboratory Tests Test 08/02/16 12:45 08/02/16 15:50 White Blood Count 5.7x10^3/uL (4.0-11.0) Red Blood Count 4.21x10^6/uL (4.30-5.70) L Hemoglobin 13.1g/dL (13.0-17.5) Hematocrit 39.7% (39.0-53.0) Mean Corpuscular Volume 94fL (79-100) Mean Corpuscular Hemoglobin 31pg (25-35) Mean Corpuscular Hemoglobin Concent 33g/dL (31-37) Red Cell Distribution Width 14.8% (11.5-14.5) H Platelet Count 210x10^3/uL (140-400) Neutrophils (%) (Auto) 66% (31-73) Lymphocytes (%) (Auto) 28% (24-48) Monocytes (%) (Auto) 5% (0-9) Eosinophils (%) (Auto) 1% (0-3) Basophils (%) (Auto) 1% (0-3) Neutrophils # (Auto) 3.8x10^3uL (1.8-7.7) Lymphocytes # (Auto) 1.6x10^3/uL (1.0-4.8) Monocytes # (Auto) 0.3x10^3/uL (0.0-1.1) Eosinophils # (Auto) 0.0x10^3/uL (0.0-0.7) Basophils # (Auto) 0.1x10^3/uL (0.0-0.2) Prothrombin Time 12.7SEC (11.7-14.0) Prothrombin Time INR 1.0 (0.8-1.1) D-Dimer (Stephanie) 0.54ug/mlFEU (0.00-0.50) H Sodium Level 138mmol/L (136-145) Potassium Level 4.8mmol/L (3.5-5.1) Chloride Level 101mmol/L (98-107) Carbon Dioxide Level 30mmol/L (21-32) Anion Gap 7 (6-14) Blood Urea Nitrogen 11mg/dL (8-26) Creatinine 0.7mg/dL (0.7-1.3) Estimated GFR (Cockcroft-Gault) 116.7 Glucose Level 120mg/dL (70-99) H Calcium Level 8.6mg/dL (8.5-10.1) Magnesium Level 2.0mg/dL (1.8-2.4) Total Bilirubin 0.3mg/dL (0.2-1.0) Direct Bilirubin 0.1mg/dL (0.0-0.2) Aspartate Amino Transferase (AST) 26U/L (15-37) Alanine Aminotransferase (ALT) 22U/L (16-63) Alkaline Phosphatase 97U/L (46-116) Creatine Kinase 115U/L (39-308) 75U/L (39-308) Creatine Kinase MB (Mass) 2.7ng/mL (0.0-3.6) 2.1ng/mL (0.0-3.6) Creatine Kinase MB Relative Index 2.3% (0-4) 2.8% (0-4) Troponin I Quantitative < 0.017ng/mL (0.000-0.055) < 0.017ng/mL (0.000-0.055) EE-Ozl-T-Type Natriuretic Peptide 329pg/mL (0-124) H Total Protein 7.8g/dL (6.4-8.2) Albumin 3.7g/dL (3.4-5.0) Lipase 91U/L (73-393) Laboratory Tests 08/02/16 12:45 Laboratory Tests 08/02/16 12:45 EKG EKG EKG shows sinus rhythm with a rate of 68 bpm, without any ST changes, T-wave inversions noted in leads aVL, V2 to 3 the 5, LVH noted, normal axis, as interpreted by me. EKG is unchanged from July 25, 2016 Radiology/Procedures Radiology/Procedures [id number] [place] [address] IMAGING REPORT Signed PATIENT: SANDRA NG ACCOUNT: [id number] : 1960 LOCATION: ER AGE: 55 SEX: M EXAM STATUS: REG ER ORD. PHYSICIAN: VENECIA GAMBINO MD REASON: chest pain today, fall last night hurt back PROCEDURE: CHEST AP ONLY AP chest, 08/02/2016: History: Fall, chest pain Comparison is made to a study from 07/25/2016. The heart size and pulmonary vascularity are normal. No pulmonary infiltrates are seen. There is no evidence of pneumothorax or pleural fluid. There is a mild thoracic scoliosis. Numerous old bilateral rib fractures are again noted. An old left clavicular fracture is also noted. A surgical screw is again seen related to the proximal left humerus. IMPRESSION: No acute cardiopulmonary abnormality is detected. DICTATED and SIGNED BY: MYLES ROSAS MD DATE: 08/02/16 1328 CC: VENECIA GAMBINO MD; UNKNOWN PCP NAME ~ [address] [id number] IMAGING REPORT Signed PATIENT: SANDRA NG ACCOUNT: [id number] : 1960 LOCATION: ER AGE: 55 SEX: M EXAM STATUS: REG ER ORD. PHYSICIAN: VENECIA GAMBINO MD REASON: chest pain today, fall last night hurt back PROCEDURE: THORACIC SPINE 3V Thoracic spine, 3 views, 08/02/2016: History: Chest pain and back pain after a fall Comparison is made to a study from 11/05/2015. There is a moderate thoracic scoliosis. The bony structures are demineralized. Some of the vertebral heights are poorly defined on the lateral view due to obliquity of positioning related to the scoliosis. No acute fracture is identified. There are scattered spurs. IMPRESSION: 1. Scoliosis. 2. Degenerative change. 3. No acute bony abnormality is detected. DICTATED and SIGNED BY: MYLES ROSAS MD DATE: 08/02/16 1332 CC: VENECIA GAMBINO MD; UNKNOWN PCP NAME ~ [facility] [address] [place] [address] IMAGING REPORT Signed PATIENT: SANDRA NG ACCOUNT: [id number] : 1960 LOCATION: ER AGE: 55 SEX: M EXAM STATUS: REG ER ORD. PHYSICIAN: VENECIA GAMBINO MD REASON: soa PROCEDURE: CT ANGIOGRAPHY CHEST CTA of the chest with contrast, 08/02/2016: History: Shortness of breath Multidetector CT imaging was performed following an IV bolus injection of iodinated contrast material. Multiplanar reconstructions were produced including coronal MIP images. The central pulmonary arteries are well opacified and no filling defects are seen to suggest pulmonary emboli. There is mild calcific plaquing of the thoracic aorta without evidence of aneurysm. A couple of scattered coronary artery calcifications are noted. The heart is not enlarged. Emphysematous changes are present in the lungs. There are scattered linear parenchymal opacities compatible with scars. There are more prominent linear opacities in the right base compatible with atelectasis and/or scarring. No pleural fluid is evident. There is a mild thoracolumbar scoliosis with moderate multilevel degenerative change. There are vertebral compression deformities at the T4 and T5 levels, unchanged since 04/11/2016. There are multiple old bilateral rib fractures. IMPRESSION: 1. No CT evidence of central pulmonary emboli. 2. Emphysema with parenchymal scarring. 3. Mild right basilar linear atelectasis and/or scarring. 4. Old upper thoracic vertebral and bilateral rib fractures. PQRS Compliance Statement: One or more of the following individualized dose reduction techniques were utilized for this examination: 1. Automated exposure control 2. Adjustment of the mA and/or kV according to patient size 3. Use of iterative reconstruction technique DICTATED and SIGNED BY: MYLES ROSAS MD DATE: 08/02/161424 CC: EVNECIA GAMBINO MD; UNKNOWN PCP NAME ~ Impressions: Back pain Chest pain Course & Med Decision Making Course & Med Decision Making Pertinent Labs and Imaging studies reviewed. (See chart for details) CT angiogram, thoracic plain films and chest x-ray in addition to EKG, labs and repeat troponins are all normal. Patient is being discharged home after he received IV pain meds and 2 Percocets prior to being discharged. Return precautions given and is agreeable Plan B discharged in stable condition at this time. Dragon Disclaimer Dragon Disclaimer This electronic medical record was generated, in whole or in part, using a voice recognition dictation system. Departure Departure Impression: Primary Impression: Chronic back pain Disposition: HOME, SELF-CARE Condition: STABLE Referrals: UNKNOWN PCP NAME (PCP) Patient Instructions: Back Pain, Adult Additional Instructions: Your EKG, labs, CT scan of your chest and x-rays of your back did not show any acute abnormalities. You were given IV pain meds and being discharged home. He' ll need to follow-up with primary care physician within next several days. Return ER for worsening pain, shortness of breath or other concerns. Problem Qualifiers Primary Impression: Chronic back pain Back pain location: thoracic back pain Back pain laterality: midline Qualified Code: M54.6 - Pain in thoracic spine VENECIA GAMBINO MD Aug 02, 2016 13:13
[2016-08-02 13:19] LABS: PROTHROMBIN TIME PATIENT 12.7 SEC (11.7-14.0)
[2016-08-02 13:21] LABS: CALCIUM 8.6 mg/dL (8.5-10.1); CREATININE 0.7 mg/dL (0.7-1.3); GFR 116.7; POTASSIUM 4.8 mmol/L (3.5-5.1)
[2016-08-02 13:24] LABS: ALBUMIN 3.7 g/dL (3.4-5.0); DIRECT BILIRUBIN 0.1 mg/dL (0.0-0.2); TOTAL BILIRUBIN 0.3 mg/dL (0.2-1.0); TOTAL PROTEIN 7.8 g/dL (6.4-8.2)
--- NOTE | 2016-08-02 13:34 | RAD ---
AP chest, 08/02/2016: History: Fall, chest pain Comparison is made to a study from 07/25/2016. The heart size and pulmonary vascularity are normal. No pulmonary infiltrates are seen. There is no evidence of pneumothorax or pleural fluid. There is a mild thoracic scoliosis. Numerous old bilateral rib fractures are again noted. An old left clavicular fracture is also noted. A surgical screw is again seen related to the proximal left humerus. IMPRESSION: No acute cardiopulmonary abnormality is detected.
--- NOTE | 2016-08-02 13:36 | RAD ---
Thoracic spine, 3 views, 08/02/2016: History: Chest pain and back pain after a fall Comparison is made to a study from 11/05/2015. There is a moderate thoracic scoliosis. The bony structures are demineralized. Some of the vertebral heights are poorly defined on the lateral view due to obliquity of positioning related to the scoliosis. No acute fracture is identified. There are scattered spurs. IMPRESSION: 1. Scoliosis. 2. Degenerative change. 3. No acute bony abnormality is detected.
[2016-08-02] MEDS: FENTANYL PF 100 MCG/2 ML VIAL. IV PRN ×3 (13:40→15:56)
[2016-08-02] MEDS: NITROGLYCERIN SUBLINGUAL 0.4 MG BOTTLE OF 25. SL PRN ×3 (13:40→15:53)
[2016-08-02 13:52] LABS: CKMB INDEX 2.3 % (0-4); CKMB MASS 2.7 ng/mL (0.0-3.6)
[2016-08-02] MEDS ORDERED: CONTRAST GIVEN MC PRN (14:00)
[2016-08-02] MEDS ORDERED: IOHEXOL 300 MG/ML 75 ML VIAL IV ONE (14:00)
--- NOTE | 2016-08-02 14:40 | RAD ---
CTA of the chest with contrast, 08/02/2016: History: Shortness of breath Multidetector CT imaging was performed following an IV bolus injection of iodinated contrast material. Multiplanar reconstructions were produced including coronal MIP images. The central pulmonary arteries are well opacified and no filling defects are seen to suggest pulmonary emboli. There is mild calcific plaquing of the thoracic aorta without evidence of aneurysm. A couple of scattered coronary artery calcifications are noted. The heart is not enlarged. Emphysematous changes are present in the lungs. There are scattered linear parenchymal opacities compatible with scars. There are more prominent linear opacities in the right base compatible with atelectasis and/or scarring. No pleural fluid is evident. There is a mild thoracolumbar scoliosis with moderate multilevel degenerative change. There are vertebral compression deformities at the T4 and T5 levels, unchanged since 04/11/2016. There are multiple old bilateral rib fractures. IMPRESSION: 1. No CT evidence of central pulmonary emboli. 2. Emphysema with parenchymal scarring. 3. Mild right basilar linear atelectasis and/or scarring. 4. Old upper thoracic vertebral and bilateral rib fractures. PQRS Compliance Statement: One or more of the following individualized dose reduction techniques were utilized for this examination: 1. Automated exposure control 2. Adjustment of the mA and/or kV according to patient size 3. Use of iterative reconstruction technique
--- NOTE | 2016-08-02 14:59 | EKG ---
[facility] [address] [place] [address] Test Date: 2016-08-02 Test Time: 12:38:14 Pat Name: SANDRA NG Department: Room: Gender: M Cabinet Professional: : 1960 Requested By: VENECIA GAMBINO Order Number: [id number] Reading MD: Qamar Birmingham Measurements Intervals [place] Rate: 68 P: 51 MO: 152 QRS: 58 QRSD: 94 T: 101 QT: 424 QTc: 456 Interpretive Statements SINUS RHYTHM ATRIAL PREMATURE COMPLEX(ES) NON-SPECIFIC ST/T CHANGES Electronically Signed On 08-03-2016 8:30:31 CDT by Qamar Birmingham
[2016-08-02 16:31] LABS: CKMB INDEX 2.8 % (0-4); CKMB MASS 2.1 ng/mL (0.0-3.6)
[2016-08-02] MEDS ORDERED: OXYCODONE/APAP 5/325 TABLET. PO ONE (17:15)
[2016-08-02 17:25] VITALS: BP 117/67
== END 2016-08-02 17:32 | disposition home or self-care (01) ==
LOC: ER 12:31
DX: G89.29 Other chronic pain (principal); M54.6 Pain in thoracic spine; E78.00 Pure hypercholesterolemia, unspecified; M41.9 Scoliosis, unspecified; M81.0 Age-related osteoporosis without current pathological fracture; I48.91 Unspecified atrial fibrillation; Z79.82 Long term (current) use of aspirin; Z88.6 Allergy status to analgesic agent; Z88.8 Allergy status to other drugs, medicaments and biological substances; W19.XXXA Unspecified fall, initial encounter; Y93.89 Activity, other specified; Y92.89 Other specified places as the place of occurrence of the external cause; Y99.8 Other external cause status
CPT/HCPCS: 36415; 71010; 71275; 72072; 80048; 80076; 82553; 83690; 83735; 83880; 84484; 85027; 85379; 85610; 93005; 96361; 96374; 96376; 99285; J3010; J7030; Q9967

== ENCOUNTER 2016-08-09 09:11 | Emergency (ER) | payer MEDICARE, MEDICAID ==
[~2016-08-09] VITALS: Ht 149.9 cm; Wt 56.7 kg
--- NOTE | 2016-08-09 09:38 | PHYS DOC ---
Past Medical History Past Medical History: A-Fib, High Cholesterol, Other Additional Past Medical Histor: osteoporosis, osteogenesis imperfecta, scoliosis, heart murmer Past Surgical History: Other Additional Past Surgical Histo: lt femur orif, lt shoulder orif, left elbow wire, nasal, bilat ear Additional Information: reports 2 cigarettes daily Alcohol Use: None Drug Use: Opiates Adult General Chief Complaint Chief Complaint: CHEST PAIN HPI HPI Patient is a 55 year old male presents emergency Department today with a complaint of upper and mid back pain secondary to a fall yesterday. Patient has a history of osteogenesis imperfecta. He is well-known at this facility, and several others throughout the [place] area for chronic pain issues secondary to falls. He does have a history of osteogenesis imperfecta. Patient was seen at [facility] 2 days ago for chest pain and IA rule out. He was released from that facility. Patient was hospitalized at [facility] July 31 and discharged August 01 for chest pain in IA rule out, he was subsequently seen here August 02 for complaint of chest wall pain. Patient was seen at [facility] July 06 with report of multiple broken ribs on the right side. He states he's had continued pain in his chest since that period of time. He denies fevers or shortness of breath. Patient lives in [facility] and often takes public transportation to multiple different hospitals for complaints of pain. Review of Systems Review of Systems Constitutional: Denies fever or chills [] Eyes: Denies change in visual acuity, redness, or eye pain [] HENT: Denies nasal congestion or sore throat [] Respiratory: Denies cough or shortness of breath [] Cardiovascular: No additional information not addressed in HPI [] GI: Denies abdominal pain, nausea, vomiting, bloody stools or diarrhea [] : Denies dysuria or hematuria [] Musculoskeletal: Denies back pain or joint pain [] Integument: Denies rash or skin lesions [] Neurologic: Denies headache, focal weakness or sensory changes [] Endocrine: Denies polyuria or polydipsia [] Current Medications Current Medications Current Medications Medications (Trade) Dose Ordered Sig/Chelsie Start Time Stop Time Status Last Admin Dose Admin Acetaminophen/ Hydrocodone Bitart (Lortab 5/325) 2 tab 1X ONCE 08/09/16 09:45 08/09/16 09:46 DC 08/09/16 09:41 2 TAB Allergies Allergies Allergies Coded Allergies Type Severity Reaction Last Updated Verified cyclobenzaprine Allergy Intermediate RASH 05/03/16 Yes metaxalone Allergy Intermediate RASH 05/03/16 Yes orphenadrine Allergy Intermediate RASH 05/03/16 Yes tramadol Allergy Intermediate SEIZURE 07/18/16 Yes NSAIDS (Non-Steroidal Anti-Inflamma Adverse Reaction Intermediate VOMITING UPSET STOMACH 05/03/16 Yes Physical Exam Physical Exam Constitutional: Well developed, well nourished, no acute distress, non-toxic appearance. Patient appears disheveled as if he has not bathed in 3 or 4 days HENT: Normocephalic, atraumatic, bilateral external ears normal, oropharynx moist, no oral exudates, nose normal. [] Eyes: PERRLA, EOMI, conjunctiva normal, no discharge. Palpable sclera Neck: Normal range of motion, no tenderness, supple, no stridor. [] Cardiovascular:Heart rate regular rhythm, no murmur [] Lungs & Thorax: Patient demonstrates no respiratory distress or respiratory fatigue. He is able to speak in full sentences. He has tenderness to palpation to his right lateral chest wall without palpable defect, deformity, instability or crepitus. He demonstrates full chest excursion with deep inspiration. Lungs are clear to auscultation bilaterally. Abdomen: Bowel sounds normal, soft, no tenderness, no masses, no pulsatile masses. [] Skin: Warm, dry, no erythema, no rash. Patient has bruising to his left lower quadrant of his abdomen from where he had been receiving Lovenox injections from previous hospitalization for rule out of IA. Back: Patient with significant dowager's hump. There is no bruising, abrasions or lacerations overlying his upper to mid back region. There is tenderness to palpation in the midline region between patient's shoulder blades. There is no palpable defect, deformity, instability or crepitus. Extremities: No tenderness, no cyanosis, no clubbing, ROM intact, no edema. [] Neurologic: Alert and oriented X 3, normal motor function, normal sensory function, no focal deficits noted. [] Psychologic: Affect normal, judgement normal, mood normal. [] Current Patient Data Vital Signs Vital Signs Date Time Temp Pulse Resp B/P Pulse Ox O2 Delivery O2 Flow Rate FiO2 08/09/16 10:22 68 20 116/64 96 Room Air 08/09/16 09:24 98.4 98.4 EKG EKG [] Radiology/Procedures Radiology/Procedures [facility] [address] [place] [address] IMAGING REPORT Signed PATIENT: SANDRA NG ACCOUNT: [id number] : 1960 LOCATION: ER AGE: 55 SEX: M EXAM STATUS: PRE ER ORD. PHYSICIAN: SHAD CUENCA REASON: mid back pain secondary to fall yesterday, healing RIGHT rib fxs PROCEDURE: THORACIC SPINE 3V Thoracic spine, 3 views, 08/09/2016: History: Mid back pain after a fall The bony structures are demineralized. There is a moderate S-shaped thoracic scoliosis. The vertebral heights are difficult to evaluate in the lateral projection due to obliquity related to the thoracic scoliosis. There is loss of height of 2 upper thoracic vertebral bodies at the T4 and T5 level, better delineated on the CT study of 08/02/2016. No definite new fracture is evident. There are mild scattered marginal spurs. Numerous old bilateral rib fractures are again noted. There is a surgical screw in the upper cervical spine. IMPRESSION: 1. Demineralization. 2. Moderate thoracic scoliosis. 3. Old upper thoracic vertebral compression fractures. 4. Multilevel degenerative change. 5. No acute fracture is identified. If pain persists, follow up MR imaging of the thoracic spine may be useful for further evaluation. DICTATED and SIGNED BY: MYLES RSOAS MD DATE: 08/09/16 0955 CC: SHAD CUENCA; UNKNOWN PCP NAME ~ Course & Med Decision Making Course & Med Decision Making Pertinent Labs and Imaging studies reviewed. (See chart for details) [] Dragon Disclaimer Dragon Disclaimer This electronic medical record was generated, in whole or in part, using a voice recognition dictation system. Departure Departure Impression: Primary Impression: Strain of thoracic region Disposition: HOME, SELF-CARE Condition: GOOD Referrals: UNKNOWN PCP NAME (PCP) Patient Instructions: Thoracic Strain, [id number] Additional Instructions: 1. The x-rays of your back showed no new fractures (broken bones) or other new abnormalities. 2. You're well known to several facilities for chronic pain issues. You state that you have a appointment with a pain management doctor next week. It is very advisable for you to make that appointment. 3. It is in your best interest to identify with one hospital system to maintain continuity of your medical care. 4. Be sure to follow up with a primary care doctor in the area in which you live , [place], [place], so that you are not obligating yourself to use public transportation across the [facility] area. Scripts Hydrocodone/Apap 5-325 ([place] 5-325 Tablet)1 Each Tablet1 Tab PO PRN Q6HRS PRN PAIN #15 TAB Prov:SHAD CUENCA 08/09/16 SHAD CUENCA August 09, 2016 09:38
[2016-08-09] MEDS ORDERED: HYDROcodone/APAP 5/325MG 1 TAB TABLET PO ONE (09:45)
--- NOTE | 2016-08-09 10:03 | RAD ---
Thoracic spine, 3 views, 08/09/2016: History: Mid back pain after a fall The bony structures are demineralized. There is a moderate S-shaped thoracic scoliosis. The vertebral heights are difficult to evaluate in the lateral projection due to obliquity related to the thoracic scoliosis. There is loss of height of 2 upper thoracic vertebral bodies at the T4 and T5 level, better delineated on the CT study of 08/02/2016. No definite new fracture is evident. There are mild scattered marginal spurs. Numerous old bilateral rib fractures are again noted. There is a surgical screw in the upper cervical spine. IMPRESSION: 1. Demineralization. 2. Moderate thoracic scoliosis. 3. Old upper thoracic vertebral compression fractures. 4. Multilevel degenerative change. 5. No acute fracture is identified. If pain persists, follow up MR imaging of the thoracic spine may be useful for further evaluation.
[2016-08-09] MEDS ORDERED: HYDR-971 PO (10:46)
--- NOTE | 2016-08-09 10:56 | EKG ---
[facility] [address] [place] [address] Test Date: 2016-08-09 Test Time: 09:19:46 Pat Name: SANDRA NG Department: Room: Gender: M Hopper Filler: : 1960 Requested By: SHAD CUENCA Order Number: [id number] Reading MD: Perla Brooke Measurements Intervals [place] Rate: 71 P: 61 AK: 162 QRS: 66 QRSD: 88 T: 88 QT: 410 QTc: 451 Interpretive Statements SINUS RHYTHM QRS(T) CONTOUR ABNORMALITY CONSIDER ANTEROLATERAL MYOCARDIAL DAMAGE ST & T ABNORMALITY, CONSIDER ANTERIOR ISCHEMIA OR LEFT VENTRICULAR STRAIN ABNORMAL ECG RI6.01 Compared to ECG 08/02/2016 12:38:14 T-wave abnormality now present Possible ischemia now present Electronically Signed On 08-09-2016 20:50:40 CDT by Perla Brooke
[2016-08-09 11:03] VITALS: BP 120/57
== END 2016-08-09 11:03 | disposition home or self-care (01) ==
LOC: ER 09:11
DX: S29.012A Strain of muscle and tendon of back wall of thorax, initial encounter (principal); G89.29 Other chronic pain; Q78.0 Osteogenesis imperfecta; R07.89 Other chest pain; I48.91 Unspecified atrial fibrillation; E78.00 Pure hypercholesterolemia, unspecified; M81.0 Age-related osteoporosis without current pathological fracture; F17.210 Nicotine dependence, cigarettes, uncomplicated; F11.10 Opioid abuse, uncomplicated; M41.9 Scoliosis, unspecified; Z88.8 Allergy status to other drugs, medicaments and biological substances; Z88.5 Allergy status to narcotic agent; Z88.6 Allergy status to analgesic agent; W18.39XA Other fall on same level, initial encounter; Y93.89 Activity, other specified; Y92.89 Other specified places as the place of occurrence of the external cause; Y99.8 Other external cause status
CPT/HCPCS: 72072; 93005; 99284-25

== ENCOUNTER 2016-08-20 11:15 | Emergency (ER) | payer MEDICARE, MEDICAID ==
[~2016-08-20] VITALS: Ht 149.9 cm; Wt 56.7 kg
[~2016-08-20 11:15] MED LIST changes: +HYDR-971 PO
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
--- NOTE | 2016-08-20 12:58 | EKG ---
[facility] [address] [place] [address] Test Date: 2016-08-20 Test Time: 11:25:32 Pat Name: SANDRA NG Department: Room: Gender: Male Client Care Consultant: : 1960 Requested By: RACH HEATH Order Number: [id number] Reading MD: Qamar Birmingham Measurements Intervals [place] Rate: 81 P: 25 ME: 150 QRS: 47 QRSD: 78 T: 93 QT: 380 QTc: 447 Interpretive Statements SINUS RHYTHM ATRIAL PREMATURE COMPLEX(ES) LVH WITH REPOLARIZATION ABNORMALITY ABNORMAL ECG Electronically Signed On 08-22-2016 10:34:51 CDT by Qamar Birmingham
[2016-08-20] MEDS ORDERED: oxyCODONE/APAP 5/325 1 TAB TABLET PO ONE ×2 (13:00→13:30)
[2016-08-20] MEDS ORDERED: LIDOCAINE (700MG/PATCH) PATCH. TD SCH (13:00)
--- NOTE | 2016-08-20 13:08 | RAD ---
Examination: 3 views of the thoracic spine History: History of fall, pain Comparison: 08/09/2016 Findings Moderate compression changes of the midthoracic vertebral bodies grossly similar to prior exam. Moderate multilevel degenerative disease identified throughout the visualized thoracal lumbar spine. Examination limited due to osseous demineralization and thoraco lumbar scoliosis. Impression: 1. Moderate degenerative changes throughout the thoracolumbar spine. 2. Compression changes identified in the mid thoracic vertebral bodies grossly similar to prior exam likely chronic.
--- NOTE | 2016-08-20 13:11 | RAD ---
Examination: 2 views of the chest. History: History of fall Comparison: 07/25/2016 Findings: The cardiomediastinal silhouette grossly appears unremarkable. Old healed left rib fractures are identified. There is no acute infiltrate or visualized pneumothorax identified. Impression: No acute cardiopulmonary findings.
[2016-08-20 13:29] VITALS: BP 121/68
== END 2016-08-20 13:42 | disposition home or self-care (01) ==
LOC: ER 12:18
DX: S29.012A Strain of muscle and tendon of back wall of thorax, initial encounter (principal); G89.29 Other chronic pain; M54.6 Pain in thoracic spine; Q78.0 Osteogenesis imperfecta; E78.00 Pure hypercholesterolemia, unspecified; I48.91 Unspecified atrial fibrillation; F17.210 Nicotine dependence, cigarettes, uncomplicated; F11.10 Opioid abuse, uncomplicated; Z88.6 Allergy status to analgesic agent; Z88.8 Allergy status to other drugs, medicaments and biological substances
CPT/HCPCS: 71020; 72072; 93005; 99284-25

== ENCOUNTER 2016-08-24 10:02 | Emergency (ER) | payer MEDICARE, MEDICAID ==
[~2016-08-24] VITALS: Ht 149.9 cm; Wt 56.7 kg
[2016-08-24 10:09] VITALS: BP 126/60
--- NOTE | 2016-08-24 10:31 | PHYS DOC ---
Past Medical History Past Medical History: A-Fib, High Cholesterol, Other Additional Past Medical Histor: osteoporosis, osteogenesis imperfecta, scoliosis, heart murmer Past Surgical History: Other Additional Past Surgical Histo: lt femur orif, lt shoulder orif, left elbow wire, nasal, bilat ear Alcohol Use: None Drug Use: Opiates Adult General Chief Complaint Chief Complaint: BACK PAIN OR INJURY [facility] HPI Patient is a 55 year old male presents emergency department stating that he was playing ball with his niece last night when the niece threw the ball to high he jumped up to catch it when he came down his left hip and leg went one way and his upper back went the opposite way. He states that he is having upper thoracic back pain left hip and left leg pain and discomfort. Patient does state he has a julian in his left femur. He does also state that he has a history of osteogenesis imperfecta. Patient continues to state that he normally takes Percocet for his pain and discomfort. Patient states that he has a primary care which she will be starting to see next week. Patient denies any numbness or tingling down to his lower extremities. Patient states that he has been able to ambulate although is a little slower than normal. Patient states that he is unable to take muscle relaxers as this does not do well with him. He states that he cannot take nonsteroidal anti-inflammatories as a cause an upset stomach. Patient denies any loss of bowel or bladder from the incident. Review of Systems Review of Systems Constitutional: Denies fever or chills [] Eyes: Denies change in visual acuity, redness, or eye pain [] HENT: Denies nasal congestion or sore throat [] Respiratory: Denies cough or shortness of breath [] Cardiovascular: No additional information not addressed in HPI [] GI: Denies abdominal pain, nausea, vomiting, bloody stools or diarrhea [] : Denies dysuria or hematuria [] Musculoskeletal: upper back pain, left hip pain and femur pain Integument: Denies rash or skin lesions [] Neurologic: Denies headache, focal weakness or sensory changes [] Endocrine: Denies polyuria or polydipsia [] Current Medications Current Medications Current Medications Medications (Trade) Dose Ordered Sig/Chelsie Start Time Stop Time Status Last Admin Dose Admin Ketorolac Tromethamine (Toradol Im) 60 mg 1X ONCE 08/24/16 10:45 08/24/16 10:46 DC 08/24/16 10:39 60 MG Allergies Allergies Allergies Coded Allergies Type Severity Reaction Last Updated Verified cyclobenzaprine Allergy Intermediate RASH 05/03/16 Yes metaxalone Allergy Intermediate RASH 05/03/16 Yes orphenadrine Allergy Intermediate RASH 05/03/16 Yes tramadol Allergy Intermediate SEIZURE 07/18/16 Yes NSAIDS (Non-Steroidal Anti-Inflamma Adverse Reaction Intermediate VOMITING UPSET STOMACH 05/03/16 Yes Physical Exam Physical Exam Constitutional: Well developed, well nourished, no acute distress, non-toxic appearance. [] HENT: Normocephalic, atraumatic, bilateral external ears normal, oropharynx moist, no oral exudates, nose normal. [] Eyes: PERRLA, EOMI, conjunctiva normal, no discharge. [] Neck: Normal range of motion, no tenderness, supple, no stridor. [] Cardiovascular:Heart rate regular rhythm, no murmur [] Lungs & Thorax: Bilateral breath sounds clear to auscultation [] Skin: Warm, dry, no erythema, no rash. No bruising or discoloration noted on the back or on the hips or legs. Back: No cervical spine or lumbar spine tenderness, no crepitus no deformities and no step-offs noted. Patient did have tenderness on the thoracic spine. There was no crepitus no deformities and no step-offs. Extremities: No tenderness, no cyanosis, no clubbing, ROM intact, no edema. Peripheral pulses 2+ cap refill brisk less than 2 seconds. Neurologic: Alert and oriented X 3, normal motor function, normal sensory function, no focal deficits noted. [] Psychologic: Affect normal, judgement normal, mood normal. [] Current Patient Data Vital Signs Vital Signs Date Time Temp Pulse Resp B/P (MAP) Pulse Ox O2 Delivery O2 Flow Rate FiO2 08/24/16 10:09 98.3 77 20 100 Room Air 98.3 EKG EKG [] Radiology/Procedures Radiology/Procedures [][facility] [address] [place] [address] IMAGING REPORT Signed PATIENT: SANDRA NG ACCOUNT: [id number] : 1960 LOCATION: ER AGE: 55 SEX: M EXAM [id number]; [id number] STATUS: REG ER ORD. PHYSICIAN: RIKKI GRIFFIN APRN REASON: fell pain to upper back PROCEDURE: HIP LEFT 2V WITH PELVIS; KNEE LEFT 3V; LEFT FEMUR XRAY Examination: 2 views of the left hip, 2 views of the left femur, 3 views of the left knee History: History of fall, pain Comparison: None available Findings The femoral head is in the acetabula. There is a moderate joint space loss identified in the left hip joint. Heterotopic ossification identified in the region of the greater trochanter. Intramedullary julian with proximal transfixing screw identified in the left femur identified. No evidence of displaced fracture identified. However in the mid shaft lateral cortex of the femur. There is a faint subtle lucent line identified, could be artifactual or a subtle stress fracture or residual old fracture lucency. This is not identified on the lateral view which makes artifact more likely. Correlate for point tenderness. Mild joint space loss identified in the medial, lateral, patellar femoral compartment. No evidence of knee joint effusion identified. Impression: 1. Intramedullary julian a defect in the left femur. In the mid shaft lateral cortex of the femur , there is a faint subtle lucent line identified, could be artifactual or a subtle stress fracture or old residual fracture lucency. This is not identified on the lateral view which makes artifact more likely. Correlate for point tenderness. DICTATED and SIGNED BY: SUDHEER MOYA MD DATE: 08/24/16 1101 CC: RIKKI GRIFFIN APRN; NON,STAFF; UNKNOWN PCP NAME ~ [facility] [address] [place], [place] [id number] IMAGING REPORT Signed PATIENT: SANDRA NG ACCOUNT: [id number] : 1960 LOCATION: ER AGE: 55 SEX: M EXAM STATUS: REG ER ORD. PHYSICIAN: RIKKI GRIFFIN APRN REASON: fell pain to upper back PROCEDURE: THORACIC SPINE 3V Examination: 3 views of thoracic spine History: History of fall, pain Comparison: 08/20/2016 Findings: Thoracic scoliosis again identified Mild compressive changes identified in the mid, lower thoracic vertebral bodies grossly similar to prior exam. Moderate degenerative disease identified in the thoracic spine. Impression: 1. Moderate degenerative changes thoracic spine. 2. Thoracic scoliosis. 3. Mild compressive changes identified in the mid, lower thoracic vertebral bodies grossly similar to prior exam. DICTATED and SIGNED BY: SUDHEER MOYA MD DATE: 08/24/16 1059 CC: RIKKI GRIFFIN APRN; NON,STAFF; UNKNOWN PCP NAME ~ Course & Med Decision Making Course & Med Decision Making Pertinent Labs and Imaging studies reviewed. (See chart for details) Patient's x-rays were obtained with no changes from previous x-rays that appear obtained here from their facility. Femur x-ray has questionable lucency of the artifact. Patient states that he has no increase tenderness over any of the areas on his leg. Patient states that he is here because he is out of his pain medication and is requesting Percocet fives. He states that he can do hydrocodone as long as though the 10/325. Patient was provided with Toradol here in the emergency department. He will be discharged home with a prescription for hydrocodone 5/325 total of 6 tablets. Patient was provided with signs and symptoms to return back to emergency department. Patient will be discharged home in stable condition. Patient agrees with discharge instructions treatment regimens and follow-up recommendations. [] Dragon Disclaimer Dragon Disclaimer This electronic medical record was generated, in whole or in part, using a voice recognition dictation system. Departure Departure Impression: Primary Impression: Fall Additional Impressions: Back pain Chronic left hip pain Disposition: 01 HOME, SELF-CARE Condition: STABLE Referrals: UNKNOWN PCP NAME (PCP) Patient Instructions: Back Pain, Adult, [id number], Fall Prevention and Home Safety, Hip Pain Additional Instructions: Activity as tolerated Medication as prescribed [place] will cause drowsiness do not take if you need to be alert and oriented Ice packs to the areas of discomfort, on 20 minutes and off 20 minutes several times a day Followup with your primary care provider in 5-7 days Return to emergency department as needed for signs and symptoms that become worse. Scripts Hydrocodone/Apap 5-325 (NORCO 5-325 TABLET) 1 Each Tablet 1 TAB PO PRN Q6HRS Y for PAIN, #6 TAB 0 Refills Prov: RIKKI GRIFFIN APRN 08/24/16 Problem Qualifiers RIKKI GRIFFIN APRN August 24, 2016 10:31
[2016-08-24] MEDS ORDERED: KETOROLAC TROMETHAMINE 60 MG/2 ML INJ. IM ONE (10:45)
--- NOTE | 2016-08-24 11:03 | RAD ---
Examination: 3 views of thoracic spine History: History of fall, pain Comparison: 08/20/2016 Findings: Thoracic scoliosis again identified Mild compressive changes identified in the mid, lower thoracic vertebral bodies grossly similar to prior exam. Moderate degenerative disease identified in the thoracic spine. Impression: 1. Moderate degenerative changes thoracic spine. 2. Thoracic scoliosis. 3. Mild compressive changes identified in the mid, lower thoracic vertebral bodies grossly similar to prior exam.
--- NOTE | 2016-08-24 11:09 | RAD ---
Examination: 2 views of the left hip, 2 views of the left femur, 3 views of the left knee History: History of fall, pain Comparison: None available Findings The femoral head is in the acetabula. There is a moderate joint space loss identified in the left hip joint. Heterotopic ossification identified in the region of the greater trochanter. Intramedullary julian with proximal transfixing screw identified in the left femur identified. No evidence of displaced fracture identified. However in the mid shaft lateral cortex of the femur. There is a faint subtle lucent line identified, could be artifactual or a subtle stress fracture or residual old fracture lucency. This is not identified on the lateral view which makes artifact more likely. Correlate for point tenderness. Mild joint space loss identified in the medial, lateral, patellar femoral compartment. No evidence of knee joint effusion identified. Impression: 1. Intramedullary julian a defect in the left femur. In the mid shaft lateral cortex of the femur , there is a faint subtle lucent line identified, could be artifactual or a subtle stress fracture or old residual fracture lucency. This is not identified on the lateral view which makes artifact more likely. Correlate for point tenderness.
[2016-08-24] MEDS ORDERED: HYDR-971 PO ×2 (11:24→11:33)
[2016-08-24] MEDS ORDERED: HYDROcodone/APAP 5/325MG 1 TAB TABLET PO ONE (11:45)
== END 2016-08-24 11:42 | disposition home or self-care (01) ==
LOC: ER 10:02
DX: M54.6 Pain in thoracic spine (principal); G89.29 Other chronic pain; M25.552 Pain in left hip; E78.00 Pure hypercholesterolemia, unspecified; M81.0 Age-related osteoporosis without current pathological fracture; M41.9 Scoliosis, unspecified; Q78.0 Osteogenesis imperfecta; F11.10 Opioid abuse, uncomplicated; Z88.6 Allergy status to analgesic agent; Z88.8 Allergy status to other drugs, medicaments and biological substances; X50.1XXA Overexertion from prolonged static or awkward postures, initial encounter; Y93.89 Activity, other specified; Y92.89 Other specified places as the place of occurrence of the external cause; Y99.8 Other external cause status
CPT/HCPCS: 72072; 73502; 73552; 73562; 96372; 99284; J1885

== ENCOUNTER 2016-08-31 14:50 | Emergency (ER) | payer MEDICARE, MEDICAID ==
[~2016-08-31] VITALS: Ht 149.9 cm; Wt 56.7 kg
[~2016-08-31 14:50] MED LIST changes: +ASPI-630 PO; -ASPI81TA2 PO; -MELA3TAB PO; +MELA3TAB2 PO
[2016-08-31 15:30] VITALS: BP 119/66
[2016-08-31] MEDS ORDERED: KETOROLAC TROMETHAMINE 60 MG/2 ML INJ. IM ONE (15:30)
--- NOTE | 2016-08-31 15:34 | PHYS DOC ---
Past Medical History Past Medical History: A-Fib, High Cholesterol, Other Additional Past Medical Histor: osteoporosis, osteogenesis imperfecta, scoliosis, heart murmer Past Surgical History: Other Additional Past Surgical Histo: lt femur orif, lt shoulder orif, left elbow wire, nasal, bilat ear Alcohol Use: None Drug Use: Opiates Adult General Chief Complaint Chief Complaint: BACK PAIN OR INJURY [facility] HPI Patient is a 56 year old male that presents to the emergency department with complaints of back pain. He states yesterday he was playing ball with his great niece and nephew, trying to steal second base when he fell landing on his back. Since states that he went to the boat to see if that would help alleviate his back discomfort and after sitting on the stool and "losing all of my money" he decided to come in the emergency department for further evaluation of his back pain. Patient does have a history of chronic back pain and is well-known to the emergency department with request for Percocet. He denies radiation of pain, denies shortness of breath, denies chest pain, abdominal pain. He denies loss of function of lower extremities. He denies loss of function of bowel or bladder. Review of Systems Review of Systems Constitutional: Denies fever or chills [] HENT: Denies nasal congestion or sore throat [] Respiratory: Denies cough or shortness of breath [] Cardiovascular: No additional information not addressed in HPI [] GI: Denies abdominal pain, nausea, vomiting, bloody stools or diarrhea [] : Denies dysuria or hematuria [] Musculoskeletal: Upper back pain, diffuse Integument: Denies rash or skin lesions [] Neurologic: Denies headache, focal weakness or sensory changes [] Endocrine: Denies polyuria or polydipsia [] Current Medications Current Medications Current Medications Medications (Trade) Dose Ordered Sig/Chelsie Start Time Stop Time Status Last Admin Dose Admin Ketorolac Tromethamine (Toradol Im) 60 mg 1X ONCE 08/31/16 15:30 08/31/16 15:34 DC Allergies Allergies Allergies Coded Allergies Type Severity Reaction Last Updated Verified cyclobenzaprine Allergy Intermediate RASH 05/03/16 Yes metaxalone Allergy Intermediate RASH 05/03/16 Yes orphenadrine Allergy Intermediate RASH 05/03/16 Yes tramadol Allergy Intermediate SEIZURE 07/18/16 Yes NSAIDS (Non-Steroidal Anti-Inflamma Adverse Reaction Intermediate VOMITING UPSET STOMACH 05/03/16 Yes Physical Exam Physical Exam Constitutional: no acute distress, non-toxic appearance. [] HENT: Normocephalic, atraumatic Eyes: PERRLA, EOMI, conjunctiva normal Neck: Normal range of motion, no tenderness, supple, no stridor. [] Cardiovascular:Heart rate regular rhythm, no murmur, posterior thorax atraumatic. He has diffuse tenderness without midline tenderness, no CVA tenderness Lungs & Thorax: Bilateral breath sounds clear to auscultation [] Abdomen: Bowel sounds normal, soft, no tenderness, no masses, no pulsatile masses. [] Skin: Warm, dry, no erythema, no rash. [] Extremities: No tenderness, no cyanosis, no clubbing, ROM intact, no edema. [] Neurologic: Alert and oriented X 3, normal motor function, normal sensory function, no focal deficits noted. [] Psychologic: Affect normal, judgement normal, mood normal. [] Current Patient Data Vital Signs Vital Signs Date Time Temp Pulse Resp B/P (MAP) Pulse Ox O2 Delivery O2 Flow Rate FiO2 08/31/16 15:30 98.2 85 16 100 Room Air 98.2 EKG EKG [] Radiology/Procedures Radiology/Procedures [] Course & Med Decision Making Course & Med Decision Making Pertinent Labs and Imaging studies reviewed. (See chart for details) Immediately upon arrival, prior to examination, patient was requesting to Percocet one to take in the emergency department one for discharge. In review up [place], from June 27 to July 07, patient had 3 different ER visits, different ER sites, and received a total of 56 Percocets per prescription. After receiving his x-rays, prior to results returned, patient became upset that he cannot have a Coke and he left the emergency department prior to completion of care. [] Dragon Disclaimer Dragon Disclaimer This electronic medical record was generated, in whole or in part, using a voice recognition dictation system. Departure Departure Impression: Primary Impression: Back pain Additional Impression: Left against medical advice Disposition: 07 AGAINST MEDICAL ADVICE Condition: STABLE Referrals: UNKNOWN PCP NAME (PCP) Problem Qualifiers DEREK MURPHY APRN August 31, 2016 15:34
--- NOTE | 2016-08-31 15:57 | RAD ---
Indication fall, pain. AP and lateral views of the thoracic spine were obtained as well as a swimmer's view area note is made of a similar examination one week ago. Scoliosis is noted. There is probable bony demineralization. The patient is kyphotic. There is mild to moderate compression of several thoracic vertebral body segments which is grossly similar to the previous exam. A definite change in the thoracic spine relative to the previous examination one week ago is not seen. IMPRESSION: Chronic changes. No definite change in plain film appearance of the thoracic spine relative to the study one week ago
== END 2016-08-31 15:53 | disposition left against medical advice (07) ==
LOC: ER 14:50
DX: M54.6 Pain in thoracic spine (principal); E78.00 Pure hypercholesterolemia, unspecified; I48.91 Unspecified atrial fibrillation; M41.9 Scoliosis, unspecified; M81.0 Age-related osteoporosis without current pathological fracture; F11.10 Opioid abuse, uncomplicated; Z88.6 Allergy status to analgesic agent; Z88.8 Allergy status to other drugs, medicaments and biological substances; W19.XXXA Unspecified fall, initial encounter; Y93.89 Activity, other specified; Y92.89 Other specified places as the place of occurrence of the external cause; Y99.8 Other external cause status
CPT/HCPCS: 72072; 99284-25

== ENCOUNTER 2016-09-12 10:02 | Emergency (ER) | payer MEDICARE, MEDICAID ==
[~2016-09-12] VITALS: Ht 149.9 cm; Wt 56.7 kg
[2016-09-12 10:12] VITALS: BP 169/77
[2016-09-12] MEDS ORDERED: ACETAMINOPHEN 500 MG TABLET PO ONE (10:30)
--- NOTE | 2016-09-12 10:30 | EKG ---
[facility] [address] [place] [address] Test Date: 2016-09-12 Test Time: 10:07:09 Pat Name: SANDRA NG Department: Room: Gender: M Senior [employer]: : 1960 Requested By: Marshall ROMANO Order Number: [id number] Reading MD: Perla Brooke Measurements Intervals [place] Rate: 68 P: 52 WY: 150 QRS: 59 QRSD: 82 T: 105 QT: 418 QTc: 449 Interpretive Statements SINUS RHYTHM ATRIAL PREMATURE COMPLEX(ES) ST & T ABNORMALITY, CONSIDER ANTERIOR ISCHEMIA T ABNORMALITY IN LATERAL LEADS RI Electronically Signed On 09-14-2016 22:35:51 CDT by Perla Brooke
--- NOTE | 2016-09-12 10:47 | PHYS DOC ---
Past Medical History Past Medical History: A-Fib, High Cholesterol, Other Additional Past Medical Histor: osteoporosis, osteogenesis imperfecta, scoliosis, heart murmer Past Surgical History: Other Additional Past Surgical Histo: lt femur orif, lt shoulder orif, left elbow wire, nasal, bilat ear Alcohol Use: None Drug Use: Opiates Adult General Chief Complaint Chief Complaint: CHEST PAIN HPI HPI Patient is a 56 year old male who presents by EMS for left-sided chest pain radiating to his left shoulder that is constant and achy and started at rest. States he has had this chest pain frequently in the past and has had multiple evaluations prior. He is asking for Percocet for his pain. He denies cough, dyspnea, palpitations, nausea or vomiting, fever or chills, diaphoresis, pain or swelling, hemoptysis, exertional symptoms. Review of Systems Review of Systems Constitutional: Denies fever or chills [] Eyes: Denies change in visual acuity, redness, or eye pain [] HENT: Denies nasal congestion or sore throat [] Respiratory: Denies cough or shortness of breath [] Cardiovascular: No additional information not addressed in HPI [] GI: Denies abdominal pain, nausea, vomiting, bloody stools or diarrhea [] : Denies dysuria or hematuria [] Musculoskeletal: Denies back pain or joint pain [] Integument: Denies rash or skin lesions [] Neurologic: Denies headache, focal weakness or sensory changes [] Endocrine: Denies polyuria or polydipsia [] Current Medications Current Medications Current Medications Medications (Trade) Dose Ordered Sig/Chelsie Start Time Stop Time Status Last Admin Dose Admin Acetaminophen (Tylenol) 500 mg 1X ONCE 09/12/16 10:30 09/12/16 10:31 DC 09/12/16 10:28 500 MG Allergies Allergies Allergies Coded Allergies Type Severity Reaction Last Updated Verified cyclobenzaprine Allergy Intermediate RASH 05/03/16 Yes metaxalone Allergy Intermediate RASH 05/03/16 Yes orphenadrine Allergy Intermediate RASH 05/03/16 Yes tramadol Allergy Intermediate SEIZURE 07/18/16 Yes NSAIDS (Non-Steroidal Anti-Inflamma Adverse Reaction Intermediate VOMITING UPSET STOMACH 05/03/16 Yes Physical Exam Physical Exam Constitutional: Well developed, well nourished, no acute distress, non-toxic appearance. [] HENT: Normocephalic, atraumatic, bilateral external ears normal, oropharynx moist, nose normal. [] Eyes: PERRLA, EOMI. [] Neck: Normal range of motion, supple. [] Cardiovascular:Heart rate regular rhythm [] Lungs & Thorax: Bilateral breath sounds clear to auscultation [] Abdomen: Bowel sounds normal, soft, no tenderness. [] Skin: Warm, dry, no erythema, no rash. [] Back: No tenderness, no CVA tenderness. [] Extremities: No tenderness, ROM intact, no edema. [] Neurologic: Alert and oriented X 3, normal motor function, normal sensory function, no focal deficits noted. [] Psychologic: Affect normal, judgement normal, mood normal. [] Current Patient Data Vital Signs Vital Signs Date Time Temp Pulse Resp B/P (MAP) Pulse Ox O2 Delivery O2 Flow Rate FiO2 09/12/16 10:12 98.1 64 18 169/77 (107) 99 Room Air 98.1 EKG EKG EKG as interpreted by me as normal sinus rhythm, rate 68, no ST-T changes, normal intervals, no ectopy Course & Med Decision Making Course & Med Decision Making Pertinent Labs and Imaging studies reviewed. (See chart for details) Orders were written. He left without laboratory evaluation. He eloped. Dragon Disclaimer Dragon Disclaimer This electronic medical record was generated, in whole or in part, using a voice recognition dictation system. Departure Departure Impression: Primary Impression: Chest pain Additional Impression: Drug-seeking behavior Disposition: 07 AGAINST MEDICAL ADVICE Condition: STABLE Referrals: NO PCP (PCP) Problem Qualifiers Primary Impression: Chest pain Chest pain type: unspecified Qualified Codes: R07.9 - Chest pain, unspecified Marshall ROMANO MD Sep 12, 2016 10:47
== END 2016-09-12 10:44 | disposition left against medical advice (07) ==
LOC: ER 10:02
DX: R07.89 Other chest pain (principal); Z76.5 Malingerer [conscious simulation]; M25.512 Pain in left shoulder; E78.00 Pure hypercholesterolemia, unspecified; I48.91 Unspecified atrial fibrillation; M41.9 Scoliosis, unspecified; F11.10 Opioid abuse, uncomplicated; Z88.6 Allergy status to analgesic agent; Z88.8 Allergy status to other drugs, medicaments and biological substances
CPT/HCPCS: 84484; 93005; 99284-25

== ENCOUNTER 2016-09-20 09:17 | Emergency (ER) | payer MEDICARE, MEDICAID ==
[~2016-09-20] VITALS: Ht 149.9 cm; Wt 54.4 kg
[2016-09-20 09:30] VITALS: BP 164/75
--- NOTE | 2016-09-20 10:21 | PHYS DOC ---
Past Medical History Past Medical History: A-Fib, High Cholesterol, Other Additional Past Medical Histor: osteoporosis, osteogenesis imperfecta, scoliosis, heart murmer Past Surgical History: Other Additional Past Surgical Histo: lt femur orif, lt shoulder orif, left elbow wire, nasal, bilat ear Alcohol Use: None Drug Use: Opiates Adult General Chief Complaint Chief Complaint: RIB PAIN [facility] HPI Patient is a 56 year old male to the emergency department stating that he was seen 2 days ago and was diagnosed with a left rib fractures at [facility]. He states that he was provided with Percocet there at the facility was discharged to take Tylenol. Patient states that he hasn't slept with the last 2 days and is having increased pain and discomfort. Patient states that he has a primary care appointment on Sunday. He also continues to state that he has an incentive spirometer at home in which she can use as mentioned to help decrease chances of pneumonia. Patient does smoke spoke with him in regards to not smoking. Patient states that he has been taking Tylenol at home and this has not relieved any of his pain. Patient appears to be allergic to nonsteroidal anti-inflammatories tramadol. It is also known that he frequents emergency departments for pain control. Patient presents with discharge paperwork from [facility] stating rib fractures. Review of Systems Review of Systems Constitutional: Denies fever or chills [] Eyes: Denies change in visual acuity, redness, or eye pain [] HENT: Denies nasal congestion or sore throat [] Respiratory: Denies cough or shortness of breath. C/o left rib fractures Cardiovascular: No additional information not addressed in HPI [] GI: Denies abdominal pain, nausea, vomiting, bloody stools or diarrhea [] : Denies dysuria or hematuria [] Musculoskeletal: Denies back pain or joint pain [] Integument: Denies rash or skin lesions [] Neurologic: Denies headache, focal weakness or sensory changes [] Endocrine: Denies polyuria or polydipsia [] Allergies Allergies Allergies Coded Allergies Type Severity Reaction Last Updated Verified cyclobenzaprine Allergy Intermediate RASH 05/03/16 Yes metaxalone Allergy Intermediate RASH 05/03/16 Yes orphenadrine Allergy Intermediate RASH 05/03/16 Yes tramadol Allergy Intermediate SEIZURE 07/18/16 Yes NSAIDS (Non-Steroidal Anti-Inflamma Adverse Reaction Intermediate VOMITING UPSET STOMACH 05/03/16 Yes Physical Exam Physical Exam Constitutional: Well developed, well nourished, no acute distress, non-toxic appearance. Patient appears with a back brace in place. HENT: Normocephalic, atraumatic, bilateral external ears normal, oropharynx moist, no oral exudates, nose normal. [] Eyes: PERRLA, EOMI, conjunctiva normal, no discharge. [] Neck: Normal range of motion, no tenderness, supple, no stridor. [] Cardiovascular:Heart rate regular rhythm, no murmur [] Lungs & Thorax: Bilateral breath sounds clear to auscultation. No rib abnormality noted on the left ribs, no step-offs no deformities and no crepitus noted no bruising noted. Equal chest expansion noted bilaterally. Skin: Warm, dry, no erythema, no rash. [] Back: No tenderness Extremities: No tenderness, no cyanosis, no clubbing, ROM intact, no edema. [] Neurologic: Alert and oriented X 3, normal motor function, normal sensory function, no focal deficits noted. [] Psychologic: Affect normal, judgement normal, mood normal. [] Current Patient Data Vital Signs Vital Signs Date Time Temp Pulse Resp B/P (MAP) Pulse Ox O2 Delivery O2 Flow Rate FiO2 09/20/16 09:30 98.1 69 18 99 Room Air 98.1 EKG EKG [] Radiology/Procedures Radiology/Procedures [] Course & Med Decision Making Course & Med Decision Making Pertinent Labs and Imaging studies reviewed. (See chart for details) Patient was offered Tylenol for pain in which patient states that this what he has been taken and does not help. He is requesting Percocet at this time. Dr. Shearer fentanyl my collaborating physician has asked that only nonnarcotic medications be offered to the patient. Patient states he does not want the Tylenol again as it does not help. Patient was instructed to use incentive spirometer at home. He was instructed to follow-up with his primary care physician on Sunday for further pain control. Patient will be discharged home in stable condition signs and symptoms to return back to the emergency department has been provided. [] Dragon Disclaimer Dragon Disclaimer This electronic medical record was generated, in whole or in part, using a voice recognition dictation system. Departure Departure Impression: Primary Impression: Rib pain on left side Disposition: HOME, SELF-CARE Condition: STABLE Referrals: NO PCP (PCP) Patient Instructions: Rib Contusion, Rib Fracture, [id number] Additional Instructions: Activity as tolerated. Tylenol for pain and discomfort. You may use melatonin to assist with sleep You may use ice packs or warm moist packs to the chest wall area. Continue to wear your back brace to help with support. Continue to use her incentive spirometer they state you have at home to help prevent pneumonia as. Stop smoking. Keep your follow-up appointment which she state you have on Sunday with your primary care physician. Return to emergency department for signs and symptoms that become worse. RIKKI GRIFFIN APRN Sep 20, 2016 10:21
== END 2016-09-20 10:28 | disposition home or self-care (01) ==
LOC: ER 09:17
DX: R07.81 Pleurodynia (principal); M81.0 Age-related osteoporosis without current pathological fracture; I48.91 Unspecified atrial fibrillation; E78.00 Pure hypercholesterolemia, unspecified; M41.9 Scoliosis, unspecified; F11.10 Opioid abuse, uncomplicated; Z88.8 Allergy status to other drugs, medicaments and biological substances; Z88.5 Allergy status to narcotic agent
CPT/HCPCS: 99281

== ENCOUNTER 2016-11-11 11:40 | Emergency (ER) | payer MEDICARE, MEDICAID ==
[~2016-11-11] VITALS: Ht 149.9 cm; Wt 54.4 kg
[2016-11-11 12:30] VITALS: BP 13/78
--- NOTE | 2016-11-11 12:40 | PHYS DOC ---
Past Medical History Past Medical History: A-Fib, High Cholesterol, Other Additional Past Medical Histor: osteoporosis, osteogenesis imperfecta, scoliosis, heart murmer Past Surgical History: Other Additional Past Surgical Histo: lt femur orif, lt shoulder orif, left elbow wire, nasal, bilat ear Alcohol Use: None Drug Use: Opiates Adult General Chief Complaint Chief Complaint: CHEST PAIN HPI HPI Patient is a 56 year old male brought to the ED from [facility] by EMS with the complaint of chest pain. Patient states he was on the bus and he began to get some tightness in his chest on the left side of his chest also into the left shoulder and left upper back. The lady at [facility] called 911. EMS administered 2 nitroglycerin and 4 baby aspirin in route. Patient states his symptoms have not changed at all. He has no diaphoresis, shortness of air, or nausea. Pt denies recent injury. Patient has a history of osteogenesis imperfecta, scoliosis, and osteoporosis. He does have frequent painful conditions including fractures and generalized pain. Patient states he did take some Tylenol at home today for back pain. States ibuprofen "doesn't agree with me". He has not had a primary care physician lately but he does have a new one that he is planning to see in 3 days, he has a new patient appointment, he cannot remember the name of this doctor, he will see him at . Daily medications include calcium, melatonin, Lipitor, Percocet 5/325 which she takes when he can get them. Patient is a smoker but states he is quitting, "I'm down to 3 cigarettes a day". Patient gives a history of osteogenesis imperfecta, high blood cholesterol, A. fib, heart murmur. Denies hypertension, "my blood pressure is only high when I heard". Denies diabetes. Review of Systems Review of Systems Constitutional: Denies fever or chills [] Eyes: Denies change in visual acuity, redness, or eye pain [] HENT: Denies nasal congestion or sore throat [] Respiratory: Denies cough or shortness of breath [] Cardiovascular: As in history of present illness GI: Denies abdominal pain, nausea, vomiting, bloody stools or diarrhea [] : Denies dysuria or hematuria [] Musculoskeletal: The patient has chronic back pain due to oh I and fractures Integument: Denies rash or skin lesions [] Neurologic: Denies headache, focal weakness or sensory changes [] Current Medications Current Medications Current Medications Medications (Trade) Dose Ordered Sig/Chelsie Start Time Stop Time Status Last Admin Dose Admin Oxycodone/ Acetaminophen (Percocet 7.5/ 325) 1 tab 1X ONCE 11/11/16 14:00 11/11/16 14:01 DC 11/11/16 14:08 1 TAB Allergies Allergies Allergies Coded Allergies Type Severity Reaction Last Updated Verified cyclobenzaprine Allergy Intermediate RASH 05/03/16 Yes metaxalone Allergy Intermediate RASH 05/03/16 Yes orphenadrine Allergy Intermediate RASH 05/03/16 Yes tramadol Allergy Intermediate SEIZURE 07/18/16 Yes NSAIDS (Non-Steroidal Anti-Inflamma Adverse Reaction Intermediate VOMITING UPSET STOMACH 05/03/16 Yes Physical Exam Physical Exam Constitutional: Well developed, well nourished, no acute distress, non-toxic appearance. [] HENT: Normocephalic, atraumatic, bilateral external ears normal, oropharynx moist, no oral exudates, nose normal. [] Eyes: PERRLA, EOMI, conjunctiva normal, no discharge. [] Neck: Normal range of motion, no tenderness, supple, no stridor. [] Cardiovascular:Heart rate regular rhythm, no murmur [] Lungs & Thorax: Bilateral breath sounds clear to auscultation [] Abdomen: Bowel sounds normal, soft, no tenderness, no masses, no pulsatile masses. [] Skin: Warm, dry, no erythema, no rash. [] Back: No tenderness, no CVA tenderness. [] Extremities: No tenderness, no cyanosis, no clubbing, ROM intact, no edema. [] Neurologic: Alert and oriented X 3, normal motor function, normal sensory function, no focal deficits noted. [] Psychologic: Affect normal, judgement normal, mood normal. [] Current Patient Data Vital Signs Vital Signs Date Time Temp Pulse Resp B/P (MAP) Pulse Ox O2 Delivery O2 Flow Rate FiO2 11/11/16 12:30 78 16 13/78 (57) 99 Room Air 11/11/16 11:43 98.0 98.0 Lab Values Laboratory Tests Test 11/11/16 12:30 White Blood Count 7.1 x10^3/uL (4.0-11.0) Red Blood Count 4.15 x10^6/uL (4.30-5.70) L Hemoglobin 13.2 g/dL (13.0-17.5) Hematocrit 39.9 % (39.0-53.0) Mean Corpuscular Volume 96 fL (79-100) Mean Corpuscular Hemoglobin 32 pg (25-35) Mean Corpuscular Hemoglobin Concent 33 g/dL (31-37) Red Cell Distribution Width 14.5 % (11.5-14.5) Platelet Count 226 x10^3/uL (140-400) Neutrophils (%) (Auto) 69 % (31-73) Lymphocytes (%) (Auto) 25 % (24-48) Monocytes (%) (Auto) 5 % (0-9) Eosinophils (%) (Auto) 0 % (0-3) Basophils (%) (Auto) 1 % (0-3) Neutrophils # (Auto) 4.9 x10^3uL (1.8-7.7) Lymphocytes # (Auto) 1.8 x10^3/uL (1.0-4.8) Monocytes # (Auto) 0.3 x10^3/uL (0.0-1.1) Eosinophils # (Auto) 0.0 x10^3/uL (0.0-0.7) Basophils # (Auto) 0.0 x10^3/uL (0.0-0.2) Sodium Level 141 mmol/L (136-145) Potassium Level 3.9 mmol/L (3.5-5.1) Chloride Level 103 mmol/L (98-107) Carbon Dioxide Level 30 mmol/L (21-32) Anion Gap 8 (6-14) Blood Urea Nitrogen 22 mg/dL (8-26) Creatinine 0.8 mg/dL (0.7-1.3) Estimated GFR (Cockcroft-Gault) 99.6 Glucose Level 99 mg/dL (70-99) Calcium Level 7.9 mg/dL (8.5-10.1) L Magnesium Level 2.5 mg/dL (1.8-2.4) H Total Bilirubin 0.1 mg/dL (0.2-1.0) L Direct Bilirubin 0.1 mg/dL (0.0-0.2) Aspartate Amino Transferase (AST) 22 U/L (15-37) Alanine Aminotransferase (ALT) 32 U/L (16-63) Alkaline Phosphatase 104 U/L (46-116) Creatine Kinase 97 U/L (39-308) Creatine Kinase MB (Mass) 2.4 ng/mL (0.0-3.6) Creatine Kinase MB Relative Index 2.5 % (0-4) Troponin I Quantitative < 0.017 ng/mL (0.000-0.055) EV-Xcj-H-Type Natriuretic Peptide 458 pg/mL (0-124) H Total Protein 7.3 g/dL (6.4-8.2) Albumin 3.5 g/dL (3.4-5.0) Laboratory Tests 11/11/16 12:30 Laboratory Tests 11/11/16 12:30 EKG EKG 12-lead EKG read by me and compared to previous EKG dated 09/12/2016. Sinus rhythm. QRST contour abnormalities which are old and were present on previous EKG. T wave inversion across the precordium which is old and was present on previous EKG. LVH with likely strain pattern. No STEMI. 1147 [] Radiology/Procedures Radiology/Procedures [] Course & Med Decision Making Course & Med Decision Making Pertinent Labs and Imaging studies reviewed. (See chart for details) 56-year-old male presents by EMS with left-sided chest pain. The patient has been seen a number of times for similar complaints. The patient was given nitroglycerin by EMS which did not change his pain at all. EKG is unchanged. When I visited the patient, he is laying on the cart with his legs crossed, changing channels on the TV. He has no concerning symptoms in addition to the chest pain. EKG unchanged, labs entirely normal. I don't believe the patient's chest pain is cardiac. I did encourage him to quit smoking and discuss with his new primary care doctor whether he might need to have some cardiac evaluation as an outpatient. ED nursing staff got him a lunch tray and he ate prior to discharging ambulatory. See instructions for plan. [] Dragon Disclaimer Dragon Disclaimer This electronic medical record was generated, in whole or in part, using a voice recognition dictation system. Departure Departure Impression: Primary Impression: Chest pain Disposition: 01 HOME, SELF-CARE Condition: STABLE Referrals: UNKNOWN PCP NAME (PCP) Patient Instructions: Chest Pain (Nonspecific), [id number], Smoking Cessation Additional Instructions: As we discussed, talked to your new primary care doctor about whether any outpatient cardiac testing is recommended. As we discussed, since you do have a cardiac risk factor of high blood cholesterol, I strongly recommend that you quit smoking. Talk to your doctor about that. Ask your doctor whether taking daily aspirin is right for you. JONATHAN MEDELLIN MD Nov 11, 2016 12:40
[2016-11-11 12:52] LABS: BASO % 1 % (0-3); EOS % 0 % (0-3); HEMATOCRIT 39.9 % (39.0-53.0); HEMOGLOBIN 13.2 g/dL (13.0-17.5); LYMPH # 1.8 x10^3/uL (1.0-4.8); LYMPH % 25 % (24-48); MEAN CORPUSCULAR HEMOGLOBIN 32 pg (25-35); MEAN CORPUSCULAR HGB CONC 33 g/dL (31-37); MEAN CORPUSCULAR VOLUME 96 fL (79-100); MONO % 5 % (0-9); NEUT % 69 % (31-73); PLATELET COUNT 226 x10^3/uL (140-400); RED BLOOD COUNT 4.15 x10^6/uL (4.30-5.70); RED CELL DISTRIBUTION WIDTH 14.5 % (11.5-14.5); WHITE BLOOD COUNT 7.1 x10^3/uL (4.0-11.0)
--- NOTE | 2016-11-11 12:57 | RAD ---
Indication left-sided chest pain. A single view of the chest was obtained. Comparison is made to an exam 08/20/2016. Heart size and pulmonary vessels are within normal limits. There is no acute parenchymal infiltrate. There are healed bilateral rib fractures. There is a chronic appearing deformity seen associated with the left clavicle and left shoulder. A significant change in the appearance of the chest compared to the prior exam is not seen. IMPRESSION: No acute finding. No significant change
[2016-11-11 13:05] LABS: CALCIUM 7.9 mg/dL (8.5-10.1); CREATININE 0.8 mg/dL (0.7-1.3); GFR 99.6; POTASSIUM 3.9 mmol/L (3.5-5.1)
[2016-11-11 13:11] LABS: ALBUMIN 3.5 g/dL (3.4-5.0); DIRECT BILIRUBIN 0.1 mg/dL (0.0-0.2); MAGNESIUM 2.5 mg/dL (1.8-2.4); TOTAL BILIRUBIN 0.1 mg/dL (0.2-1.0); TOTAL PROTEIN 7.3 g/dL (6.4-8.2)
[2016-11-11 13:17] LABS: CKMB MASS 2.4 ng/mL (0.0-3.6)
[2016-11-11] MEDS ORDERED: oxyCODONE/APAP 7.5/325 1 TAB TABLET PO ONE (14:00)
--- NOTE | 2016-11-11 16:54 | EKG ---
[facility] [address] [place] [address] Test Date: 2016-11-11 Test Time: 11:47:35 Pat Name: SANDRA NG Department: Room: Gender: M Pot Tender: : 1960 Requested By: JONATHAN MEDELLIN Order Number: [id number] Reading MD: Tom Broussard Measurements Intervals Alexander Rate: 69 P: 51 AK: 160 QRS: 61 QRSD: 78 T: 101 QT: 402 QTc: 432 Interpretive Statements SINUS RHYTHM QRS(T) CONTOUR ABNORMALITY CONSIDER ANTEROSEPTAL MYOCARDIAL DAMAGE ST & T ABNORMALITY, CONSIDER ANTERIOR ISCHEMIA OR LEFT VENTRICULAR STRAIN T ABNORMALITY IN HIGH LATERAL LEADS RI6.01 Unconfirmed report Compared to ECG 09/12/2016 10:07:09 No significant changes Electronically Signed On 11-12-2016 13:21:35 CDT by Tom Broussard
== END 2016-11-11 14:16 | disposition home or self-care (01) ==
LOC: ER 11:40
DX: R07.89 Other chest pain (principal); I48.91 Unspecified atrial fibrillation; E78.00 Pure hypercholesterolemia, unspecified; M81.0 Age-related osteoporosis without current pathological fracture; M41.9 Scoliosis, unspecified; F17.210 Nicotine dependence, cigarettes, uncomplicated; F11.10 Opioid abuse, uncomplicated; Z88.8 Allergy status to other drugs, medicaments and biological substances; Z88.6 Allergy status to analgesic agent; Z88.5 Allergy status to narcotic agent
CPT/HCPCS: 36415; 71010; 80048; 80076; 82553; 83735; 83880; 84484; 85027; 93005; 99285-25

== ENCOUNTER 2016-11-15 06:46 | Emergency (ER) | payer MEDICARE, MEDICAID ==
[2016-11-15 06:57] VITALS: BP 178/72
[2016-11-15] MEDS ORDERED: NEOMY/BACITR/POLYMYXIN OINT PACKET. TP ONE (07:15)
--- NOTE | 2016-11-15 07:22 | PHYS DOC ---
Past Medical History Past Medical History: A-Fib, High Cholesterol, Other Additional Past Medical Histor: osteoporosis, osteogenesis imperfecta, scoliosis, heart murmer Past Surgical History: Other Additional Past Surgical Histo: lt femur orif, lt shoulder orif, left elbow wire, nasal, bilat ear Alcohol Use: None Drug Use: Opiates Adult General Chief Complaint Chief Complaint: MECHANICAL FALL HPI HPI Patient is a pleasant 56-year-old male with a history of osteogenic imperfecta and now 17 visits over the last 6 months or facility for chronic back issues and fall from standing. Patient is a chronic history of lower back pain and thoracic back strain with multiple long bone fractures secondary to his medical problem who was carrying a sofa yesterday with his nephew. He lost his balance slipped and fell from a standing position to the ground. He now complains of his specifically left lower rib pain and mid thoracic and lumbar back pain. It is not new. There is no numbness and tingling associated with this back pain to the lower legs. There is no bowel or bladder incontinence. Patient took the bus here this morning. He walked without issue, he denies any numbness and tingling , nausea, vomiting, diarrhea, UTI Nino, hematuria, night sweats, weight loss or other symptoms. Patient says the pain is worse with direct pressure over the ribs and with moving and breathing of the rib cage. His first request was for narcotic pain medications. Pain he says is a 10 of 10 at this time as he sitting comfortably watching television Review of Systems Review of Systems Constitutional: Denies fever or chills [] Eyes: Denies change in visual acuity, redness, or eye pain [] HENT: Denies nasal congestion or sore throat [] Respiratory: Denies cough or shortness of breath [] Cardiovascular: No additional information not addressed in HPI [] GI: Denies abdominal pain, nausea, vomiting, bloody stools or diarrhea [] : Denies dysuria or hematuria [] Musculoskeletal: He complains of lower back pain mid back pain and rib pain. Integument: Denies rash or skin lesions [] Neurologic: Denies headache, focal weakness or sensory changes [] Endocrine: Denies polyuria or polydipsia [] Current Medications Current Medications Current Medications Medications (Trade) Dose Ordered Sig/Chelsie Start Time Stop Time Status Last Admin Dose Admin Neomycin/ Polymyxin/ Bacitracin (Triple Antibiotic Ointment) 1 pkt STK-MED ONCE 11/15/16 07:15 11/15/16 07:16 DC Allergies Allergies Allergies Coded Allergies Type Severity Reaction Last Updated Verified cyclobenzaprine Allergy Intermediate RASH 05/03/16 Yes metaxalone Allergy Intermediate RASH 05/03/16 Yes orphenadrine Allergy Intermediate RASH 05/03/16 Yes tramadol Allergy Intermediate SEIZURE 07/18/16 Yes NSAIDS (Non-Steroidal Anti-Inflamma Adverse Reaction Intermediate VOMITING UPSET STOMACH 05/03/16 Yes Physical Exam Physical Exam Patient's vital signs are noted to be normal upon arrival. Constitutional: Well developed, well nourished, no acute distress, non-toxic appearance. Patient sitting for the TV watching quietly without issue breathing and a normal respiratory rate no obvious splinting Cardiovascular:Heart rate regular rhythm, slight systolic murmur. Lungs & Thorax: Bilateral breath sounds clear to auscultation he is tender to palpation over the eighth and ninth rib on the lateral aspect of the left side. There is a small contusion looking somewhat old. There is no obvious crepitus there is no paroxysmal chest wall movement. He is not splinting unless I put direct pressure over that rib. Abdomen: Bowel sounds normal, soft, no tenderness, no masses, no pulsatile masses. [] Skin: Warm, dry, no erythema, no rash. [] Back: Patient is marked tenderness to palpation along the erector spinae muscles and mid spine of the T-spine and L-spine. Patient has positive Ayleen signs [] Extremities: No tenderness, no cyanosis, no clubbing, ROM intact, no edema. [] Neurologic: Alert and oriented X 3, normal motor function, normal sensory function, no focal deficits noted. [] Psychologic: Affect normal, judgement normal, mood normal. [] Current Patient Data Vital Signs Vital Signs Date Time Temp Pulse Resp B/P (MAP) Pulse Ox O2 Delivery O2 Flow Rate FiO2 11/15/16 06:57 98.0 78 16 99 Room Air 98.0 EKG EKG [] Radiology/Procedures Radiology/Procedures [] Course & Med Decision Making Course & Med Decision Making Pertinent Labs and Imaging studies reviewed. (See chart for details) Patient has a documented history of drug-seeking behavior has been seen here now 17 times for her symptoms issues. Patient with history of osteogenic imperfecta likely should not be carrying her heavy furniture level of moving this heavy furniture at [facility] refill prone to long bone fractures and injuries to his skeletal system. Although he was comfortable last night he came in this morning via bus attempting ask for narcotics upon arrival even before demonstrating any major injuries on his body. Patient's possible dental signs and is over reaction to even basic touching of the abdominal wall for examination I am somewhat reluctant and fearful there may be some secondary behaviors here driving for narcotic treatment. I'm concerned with this patient's presentation that they may be addicted to narcotic medications. Their behavior could be described as drug seeking in nature and I'm concerned that if I do not explain to them my concerns and we have a discussion about how to treat this in the future we will continue to see them using these medications and possibly dangerous manners. We talked about overutilization that the medications associated with narcotics to include acetaminophen when taking large doses can cause liver injury that is permanent nature. We discussed a treatment plan and need for follow-up with a banner painter to talk about alternatives to narcotic medications. We also talked about possible psychiatric intervention to help him cope with her chronic pain condition. We also discussed possible social work involvement or addiction treatment involvement to help address the possible withdrawal symptoms that may be experiencing which is causing the further use narcotics in this way. I will take the time to provide them addiction clinic information in the follow- up if he chooses to accept my help. [] Dragon Disclaimer Dragon Disclaimer This electronic medical record was generated, in whole or in part, using a voice recognition dictation system. Departure Departure Impression: Primary Impression: Drug-seeking behavior Additional Impressions: Chest wall contusion Back pain Rib pain on left side Disposition: 01 HOME, SELF-CARE Condition: IMPROVED Referrals: UNKNOWN PCP NAME (PCP) Patient Instructions: Chest Contusion, Chronic Back Pain, Chronic Pain Management, Contusion, Rib Contusion Additional Instructions: Please return for any new or increasing symptoms. Advise to use over-the- counter medication to treat her rib contusion and chronic back pain. Patient follow-up with your regular doctor for any changes in medications he might think help in urine symptom treatment. He does have some chronic compression fractures of the T-spine and L-spine likely secondary to your primary medical problems. Advise that you follow-up with her neurologist to help you manage this pain Scripts Acetaminophen (TYLENOL) 325 Mg Tablet 1-2 TAB PO QID, #60 TAB 2 Refills Prov: JOHN REESE MD 11/15/16 Problem Qualifiers JOHN REESE MD Nov 15, 2016 07:22
--- NOTE | 2016-11-15 07:37 | RAD ---
Indication fall. Pain. AP and lateral views of the lumbar spine were obtained as well as a coned view targeted to the lumbosacral junction. There is probable bony demineralization. There is slight wedging of T12, L1 and L2 the chronicity of which is uncertain. Mild scoliosis is noted. A definite acute bony finding is not seen. IMPRESSION: Probable bony demineralization. Mild wedging of T12, L1 and L2 the chronicity of which is not certain.
--- NOTE | 2016-11-15 07:40 | RAD ---
Indication fall, pain. AP and lateral views of the thoracic spine were obtained as well as a swimmer's view. Note is made of a previous examination 08/31/2016. Multiple healed left rib fractures are noted. There is scoliosis. There is bony demineralization. There is moderate wedging of numerous thoracic vertebral body segments appearing similar to an examination 08/31/2016 IMPRESSION: Chronic changes in the thoracic spine. No definite acute finding or change when compared to an examination 08/31/2016.
--- NOTE | 2016-11-15 07:43 | RAD ---
Indication fall, pain. An AP view of the chest was obtained as well as films targeted to left ribs. Note is made of a previous examination of the chest 4 days ago. The heart and pulmonary vessels appear normal. The lungs are clear of acute infiltrates. There are multiple healed left rib fractures. A definite acute rib fracture is not seen. IMPRESSION: No acute finding in the chest. Multiple old left rib fractures. No definite acute fracture seen
[2016-11-15] MEDS ORDERED: ACET325T9 PO (07:48)
[2016-11-15] MEDS ORDERED: ACETAMINOPHEN 500 MG TABLET PO ONE (08:00)
== END 2016-11-15 08:20 | disposition home or self-care (01) ==
LOC: ER 06:46
DX: S20.212A Contusion of left front wall of thorax, initial encounter (principal); M54.6 Pain in thoracic spine; M54.5 Low back pain; G89.29 Other chronic pain; I48.91 Unspecified atrial fibrillation; Z76.5 Malingerer [conscious simulation]; E78.00 Pure hypercholesterolemia, unspecified; F11.10 Opioid abuse, uncomplicated; Z88.6 Allergy status to analgesic agent; Z88.8 Allergy status to other drugs, medicaments and biological substances; W18.39XA Other fall on same level, initial encounter; Y93.89 Activity, other specified; Y99.8 Other external cause status; Y92.89 Other specified places as the place of occurrence of the external cause
CPT/HCPCS: 71101; 72072; 72100; 99284-25

== ENCOUNTER 2019-01-18 07:50 | Emergency (ER) | payer MEDICARE, MEDICAID ==
[~2019-01-18] VITALS: Ht 149.9 cm; Wt 54.4 kg
[~2019-01-18 07:50] MED LIST changes: +ACET325T9 PO; +HYDR-3164 PO; -HYDR-971 PO; -MELA3TAB2 PO; +MELA3TAB56 PO; -OXYC-323 PO; +OXYC1TAB15 PO
[2019-01-18 07:56] VITALS: BP 188/88
--- NOTE | 2019-01-18 08:19 | PHYS DOC ---
Past Medical History Past Medical History: A-Fib, High Cholesterol, Other Additional Past Medical Histor: osteoporosis, osteogenesis imperfecta, scoliosis, heart murmer Past Surgical History: Other Additional Past Surgical Histo: lt femur orif, lt shoulder orif, left elbow wire, nasal, bilat ear Alcohol Use: None Drug Use: Opiates Adult General Chief Complaint Chief Complaint: RIB PAIN HPI HPI 58-year-old male presents to the emergency room complaints of cough �2 days, right rib pain. Patient is a history of osteogenesis imperfecta. Patient states he's had history of fractures in the past with regards to coughing too hard. He denies any nausea, vomiting, abdominal pain, headache or visual change. Patient is requesting by mouth pain medication, states he took the bus. All other ROS negative unless documented in HPI Review of Systems Review of Systems See Above Current Medications Current Medications Current Medications Medications (Trade) Dose Ordered Sig/Chelsie Start Time Stop Time Status Last Admin Dose Admin Oxycodone/ Acetaminophen (Percocet 5/325) 1 tab 1X ONCE 01/18/19 08:30 01/18/19 08:31 DC 01/18/19 08:32 1 TAB Allergies Allergies Allergies Coded Allergies Type Severity Reaction Last Updated Verified cyclobenzaprine Allergy Intermediate RASH 05/03/16 Yes metaxalone Allergy Intermediate RASH 05/03/16 Yes orphenadrine Allergy Intermediate RASH 05/03/16 Yes tramadol Allergy Intermediate SEIZURE 07/18/16 Yes NSAIDS (Non-Steroidal Anti-Inflamma Adverse Reaction Intermediate VOMITING UP SET STOMACH 05/03/16 Yes Physical Exam Physical Exam See Above Constitutional: Well developed, well nourished, no acute distress, non-toxic appearance. [] HENT: Normocephalic, atraumatic, bilateral external ears normal, oropharynx moist, no oral exudates, nose normal. [] Eyes: PERRLA, EOMI, conjunctiva normal, no discharge. [] Cardiovascular:Heart rate regular rhythm, no murmur [] Lungs & Thorax: Bilateral breath sounds clear to auscultation, right side chest pain, no bruising[] Skin: Warm, dry, no erythema, no rash. [] Extremities: No tenderness, no edema. [] Neurologic: Alert and oriented X 3, no focal deficits noted. [] Psychologic: Affect normal, judgement normal, mood normal. [] Current Patient Data Vital Signs Vital Signs Date Time Temp Pulse Resp B/P (MAP) Pulse Ox O2 Delivery O2 Flow Rate FiO2 01/18/19 07:56 97.5 84 16 188/88 (121) 95 Room Air 97.5 EKG EKG [] Radiology/Procedures Radiology/Procedures [facility] [address] [place] [address] IMAGING REPORT Signed PATIENT: SANDRA NG ACCOUNT: [id number] : 1960 LOCATION: ER AGE: 58 SEX: M EXAM STATUS: PRE ER ORD. PHYSICIAN: SUZANNA STREET MD REASON: cough, left rib pain. hx of pneumonia PROCEDURE: CHEST PA & LATERAL CHEST PA LATERAL History: Cough, left rib pain Comparison: November 15, 2016 Findings: 2 views of the chest are submitted. There is again suspected emphysema. There is no pneumothorax, lobar consolidation, pleural fluid. Some opacity along the left heart border as seen on the PA view although not well visualized on lateral view is stable in appearance. There are again old left posterior lateral rib fractures such as of the third through sixth ribs. There is again small screw of the proximal left humerus. There is accentuation of thoracic kyphosis, degree compression deformity of the thoracic spine similar compared with the November 2016 thoracic spine radiographs. Impression: 1. No acute radiographic abnormality is identified, again old left rib fractures. Opacity along the left heart border is similar compared with the November 2016 exam. There is again suspected emphysema. Electronically signed by: Anirudh Read MD (01/18/2019 8:27 AM) [facility] DICTATED and SIGNED BY: ANIRUDH READ MD DATE: 01/18/19 0827 [] Course & Med Decision Making Course & Med Decision Making Pertinent Labs and Imaging studies reviewed. (See chart for details) []58-year-old male presents to the emergency room complaints of cough �2 days, right rib pain. Patient is a history of osteogenesis imperfecta. Patient states he's had history of fractures in the past with regards to coughing too hard. He denies any nausea, vomiting, abdominal pain, headache or visual change. Patient is requesting by mouth pain medication, states he took the bus. Xray without acute fracture Percocet 5/325 po x 1 Recommend follow up with PCP as scheduled DC instructions provided Kaiden Disclaimer Kaiden Disclaimer This electronic medical record was generated, in whole or in part, using a voice recognition dictation system. Departure Departure Impression: Primary Impression: Rib pain on right side Disposition: HOME, SELF-CARE Condition: STABLE Referrals: UNKNOWN PCP NAME (PCP) Patient Instructions: Rib Contusion Additional Instructions: Recommend follow up with PCP 3 - 5 days Return to the ER with worsening symptoms, intractable pain, fever, altered mental status Tylenol/Motrin as needed for pain Xray without evidence of acute fracture SUZANNA STREET MD Jan 18, 2019 08:19
[2019-01-18] MEDS ORDERED: oxyCODONE/APAP 5/325 1 TAB TABLET PO ONE (08:30)
--- NOTE | 2019-01-18 08:30 | RAD ---
CHEST PA LATERAL History: Cough, left rib pain Comparison: November 15, 2016 Findings: 2 views of the chest are submitted. There is again suspected emphysema. There is no pneumothorax, lobar consolidation, pleural fluid. Some opacity along the left heart border as seen on the PA view although not well visualized on lateral view is stable in appearance. There are again old left posterior lateral rib fractures such as of the third through sixth ribs. There is again small screw of the proximal left humerus. There is accentuation of thoracic kyphosis, degree compression deformity of the thoracic spine similar compared with the November 2016 thoracic spine radiographs. Impression: 1. No acute radiographic abnormality is identified, again old left rib fractures. Opacity along the left heart border is similar compared with the November 2016 exam. There is again suspected emphysema. Electronically signed by: Pola Navas MD (01/18/2019 8:27 AM) [facility]
== END 2019-01-18 09:06 | disposition home or self-care (01) ==
LOC: ER 07:50
DX: R07.81 Pleurodynia (principal); R05 Cough; I48.91 Unspecified atrial fibrillation; E78.00 Pure hypercholesterolemia, unspecified; Z88.6 Allergy status to analgesic agent; Z88.8 Allergy status to other drugs, medicaments and biological substances
CPT/HCPCS: 71046; 99284